=== PATIENT | male | born 1940 | race Caucasian/White ===

== ENCOUNTER 2023-02-05 13:48 | Inpatient (IN) ==
--- NOTE | 2023-02-05 14:05 | Emergency Department Note ---
HPI General Chief complaint: Shortness of Breath/Dyspnea Stated complaint: Shortness of Breath Time Seen by Provider: 02/05/23 13:50 Source: EMS Mode of arrival: EMS Limitations: no limitations History of Present Illness HPI Narrative: Narrative: 82-year-old male history of end-stage COPD presents the emergency department via EMS for shortness of breath and hallucinations they are worried they may have some kind of infection going on. The thing and possibly UTI. They did recently see Dr. Read who recommended getting a base abnormality urinate. Said he was hallucinating saying things and talking to people that were not there which is very abnormal for him. He does have end-stage COPD he does see pulmonology regularly. Said he has not really had any changes in his worsening of breathing but he just does not have very good lung capacity at baseline. Related Data Home Medications Medication Instructions Recorded Confirmed cholecalciferol (vitamin D3) 125 125 mcg PO BID 11/13/22 02/05/23 mcg (5,000 unit) tablet diltiazem HCl 180 mg 180 mg PO QDAY 11/13/22 02/05/23 tablet,extended release 24 hr (Matzim LA) fluticasone fur. 200 mcg-umeclid 1 inh inhalation QDAY 11/13/22 02/05/23 62.5 mcg-vilant 25 mcg inhalat.powder (Trelegy Ellipta) donepezil 5 mg tablet 5 mg PO QDAY 12/05/22 02/05/23 guaifenesin 1,200 mg tablet, 1,200 mg PO BID 12/05/22 02/05/23 extended release 12 hr (Mucinex) ipratropium 0.5 mg-albuterol 3 mg 3 ml inhalation Q6H PRN Wheezing 12/05/22 02/05/23 (2.5 mg base)/3 mL nebulization soln multivitamin 1 tab PO QAM 12/05/22 02/05/23 prednisone 10 mg tablet 10 mg PO QDAY 12/05/22 02/05/23 tamsulosin 0.4 mg capsule 0.4 mg PO QDAY 12/05/22 02/05/23 Previous Rx's Medication Instructions Recorded Permanent Disabled Parking #2 ea 12/02/16 Allergies Allergy/AdvReac Type Severity Reaction Status Date / Time dextromethorphan AdvReac Severe hallucinati Verified 02/05/23 13:53 ons Review of Systems ROS ROS Narrative: Narrative: All systems ED: reviewed and negative except as stated. [facility] Narrative Patient History Narrative: Narrative: Medical/Surgical/Family History All Active Problems Hypoxemia (Acute) COPD mixed type (Acute) At high risk for falls (Chronic) Dyspnea (Chronic) Dizziness (Chronic) Difficulty walking (Chronic) Muscle weakness (Chronic) Wheezing (Chronic) Cough (Chronic) Weight gain (Chronic) Diverticulosis of intestine (Chronic) Essential hypertension (Chronic) Vitamin D deficiency (Chronic) SOB (shortness of breath) (Chronic) Weakness (Chronic) Laceration (Chronic) Encounter for removal of sutures (Chronic) Acute exacerbation of chronic obstructive pulmonary disease (Chronic) Pneumonia (Chronic) Renal insufficiency (Chronic) Skin cancer, basal cell (Chronic) Hypertension (Chronic) Basal cell carcinoma (Chronic) Chest pain (Chronic) Aphthous ulcer (Chronic) Chronic obstructive pulmonary disease (Chronic) Rotator cuff impingement syndrome (Chronic) Moderate COPD (Chronic Obstructive Pulmonary Disease) (Chronic) Hypogonadism (Chronic) Hypertension, essential, benign (Chronic) History of colonoscopy (Chronic) Chronic pain (Chronic) Medical History Acute exacerbation of chronic obstructive pulmonary disease Aphthous ulcer At high risk for falls Basal cell carcinoma Chest pain Chronic obstructive pulmonary disease Chronic pain COPD mixed type Cough Difficulty walking Diverticulosis of intestine Dizziness Dyspnea Encounter for removal of sutures Essential hypertension Hypertension Hypertension, essential, benign Hypogonadism Testicular hypofunction/other hypogonadism Hypoxemia Laceration Moderate COPD (Chronic Obstructive Pulmonary Disease) Muscle weakness Pneumonia Renal insufficiency hypertensive kidney disease Rotator cuff impingement syndrome Skin cancer, basal cell SOB (shortness of breath) Vitamin D deficiency Weakness Weight gain Wheezing Surgical History History of colonoscopy 06/14/2013 - Colonic polyps, rectal polyps, diverticulosis Family History Brother Cardiac disease, Onset Age: 59 Kidney disease Mother Cardiac disease Social History Smoking Status: Former smoker Alcohol Intake Frequency: holiday/special occasion only Substance Use: does not use Exam Narrative Narrative: Narrative: Vital signs noted General: Awake. Alert. No distress. Skin: Warm. Dry. No rash. HEENT: NCAT. PERRL. EOMI. No conjunctivitis. Membranes moist. Neck: Good ROM. No meningeal signs. No stridor. Cardiovascular: RRR. Respiratory: No respiratory distress. Wheezes heard throughout but very mild Gastrointestinal: Abdomen soft. No tenderness. No distention. Back: No deformity. No CVAT. Musculoskeletal: No tenderness. No swelling. No erythema. No edema. Good peripheral pulses x 4 Neurological: No focal neurological deficits observed. General Limitations: no limitations Course Vital Signs Vital signs: Vital Signs Temperature 97.6 F 02/05/23 13:48 Pulse Rate 89 02/05/23 13:48 Respiratory Rate 20 02/05/23 13:48 Pulse Oximetry (%) 100 02/05/23 13:48 Oxygen Delivery Method Nasal Cannula 02/05/23 13:48 Oxygen Flow Rate (L/min) 3.5 02/05/23 13:48 Temperature 97.6 F 02/05/23 13:48 Pulse Rate 92 H 02/05/23 16:13 Respiratory Rate 20 02/05/23 13:48 Blood Pressure 137/100 02/05/23 16:13 Pulse Oximetry (%) 96 02/05/23 16:13 Oxygen Delivery Method Nasal Cannula 02/05/23 16:13 Oxygen Flow Rate (L/min) 3.5 02/05/23 16:13 [facility] MDM Narrative Medical decision making narrative: Narrative: Patient looks well on exam to me I do not see any acute findings. He looks well. He is not in any acute distress. Vital signs are fairly normal. I did review patient's most recent pulmonology visit from 01/17/23 sounds like they are trying to get him off steroids and checking PFTs. We will go ahead and just get basic labs including CBC chemistry, blood cultures, chest x-ray, VBG as well as a urinalysis looking for infection versus other acute findings such as hypercapnia. Disposition will be pending results is not in any acute distress at this time I did personally review and interpret patient's labs and he does have a mild leukocytosis. With a left shift there VBG shows no hypercapnia no real acute findings lactic acid also was normal. Chemistry was also ran creatinine is around baseline at 2.0 the rest electrolytes are not abnormal. Urinalysis does show signs of infection as is leukocyte esterase positive is having white blood cells as well as bacteria. Based on these findings I think patient does need to receive IV antibiotics because of the hallucinations and changes in mental status I think it probably be beneficial for him to stay here in the hospital for further treatment. We will go ahead and give him 1 dose of Rocephin here as well as have him receive IV fluids for dehydration. Patient and family are okay with this plan. I spoke with the hospitalist Dr. Calle who has agreed to admit the patient. Patient admitted in fair condition Lab Data 02/05/23 14:23 Labs: Lab Results 02/05/23 02/05/23 02/05/23 Range/Units 14:03 14:03 14:23 WBC 11.3 H (4.5-11.0) K/mcL RBC 4.41 L (4.63-6.08) M/mcL Hgb 13.7 (13.7-17.5) g/dL Hct 41.7 (40.1-51.0) % POC Hct 42.0 (41-55) MCV 94.6 (80.0-100.0) fL MCH 31.1 (26.0-34.0) pg MCHC 32.9 (31.0-36.0) g/dL RDW 14.2 (11.5-14.5) % Plt Count 212 (140-440) K/mcL MPV 9.4 (8.8-12.5) fL Immature Gran % (Auto) 1.0 H (0.0-0.5) % Neut % (Auto) 84.5 H (38.0-78.0) % Lymph % (Auto) 6.2 L (15.5-49.0) % [place] % (Auto) 7.8 (1.0-12.0) % Eos % (Auto) 0.3 (0.0-7.0) % Baso % (Auto) 0.2 (0.0-2.0) % Lymph # (Auto) 0.70 L (1.50-4.80) K/mcL [place] # (Auto) 0.88 (0.10-0.90) K/mcL Eos # (Auto) 0.03 (0.00-0.70) K/mcL Baso # (Auto) 0.02 (0.00-0.30) K/mcL Immature Gran # 0.11 H (0.00-0.05) K/mcl Absolute Neutrophils 9.56 H (1.80-8.00) K/mcL POC VBG pH 7.39 (7.32-7.42) POC VBG pCO2 at Temp 50.3 (41-51) POC VBG pO2 30 (25-40) POC VBG HCO3 30.5 H (24-28) POC VBG Total CO2 32.0 H (25-29) POC Venous O2 Sat 56.0 (40-70) POC VBG Base Excess 6.0 H* (-2-2) VBG Lactic Acid 1.0 (0.5-2) POC Sodium 143 (133-145) POC Potassium 3.4 (3.3-5.1) POC Chloride 103 (96-108) POC Total CO2 29.0 (22-30) POC BUN 30 H (6-20) POC Creatinine 2.0 H (0.6-1.2) POC Glucose 109 H (70-105) POC WB Ioniz Calcium 1.21 (1.16-1.32) Urine Color Urine Appearance (Clear) Urine pH (5.0-9.0) Ur Specific [place] (1.000-1.035) Urine Protein (Negative) mg/dL Urine Glucose (UA) (Negative) mg/dL Urine Ketones (Negative) mg/dL Urine Occult Blood (Negative) mg/dL Urine Nitrate (Negative) Urine Bilirubin (Negative) mg/dL Urine Urobilinogen mg/dL Ur Leukocyte Esterase (Negative) /uL Urine RBC (0-3) /hpf Urine WBC (0-4) /hpf Ur Squamous Epith Cells (0-4) /hpf Ur Transition Epith Cell (0-2) /hpf Urine Bacteria (0) /hpf Hyaline Casts (0-2) /lph Urine Mucus (None) /hpf Ur Culture Indicated? 02/05/23 Range/Units 14:59 WBC (4.5-11.0) K/mcL RBC (4.63-6.08) M/mcL Hgb (13.7-17.5) g/dL Hct (40.1-51.0) % POC Hct (41-55) MCV (80.0-100.0) fL MCH (26.0-34.0) pg MCHC (31.0-36.0) g/dL RDW (11.5-14.5) % Plt Count (140-440) K/mcL MPV (8.8-12.5) fL Immature Gran % (Auto) (0.0-0.5) % Neut % (Auto) (38.0-78.0) % Lymph % (Auto) (15.5-49.0) % [place] % (Auto) (1.0-12.0) % Eos % (Auto) (0.0-7.0) % Baso % (Auto) (0.0-2.0) % Lymph # (Auto) (1.50-4.80) K/mcL [place] # (Auto) (0.10-0.90) K/mcL Eos # (Auto) (0.00-0.70) K/mcL Baso # (Auto) (0.00-0.30) K/mcL Immature Gran # (0.00-0.05) K/mcl Absolute Neutrophils (1.80-8.00) K/mcL POC VBG pH (7.32-7.42) POC VBG pCO2 at Temp (41-51) POC VBG pO2 (25-40) POC VBG HCO3 (24-28) POC VBG Total CO2 (25-29) POC Venous O2 Sat (40-70) POC VBG Base Excess (-2-2) VBG Lactic Acid (0.5-2) POC Sodium (133-145) POC Potassium (3.3-5.1) POC Chloride (96-108) POC Total CO2 (22-30) POC BUN (6-20) POC Creatinine (0.6-1.2) POC Glucose (70-105) POC WB Ioniz Calcium (1.16-1.32) Urine Color Yellow Urine Appearance Hazy A (Clear) Urine pH 5.0 (5.0-9.0) Ur Specific [place] 1.014 (1.000-1.035) Urine Protein 30 A (Negative) mg/dL Urine Glucose (UA) Negative (Negative) mg/dL Urine Ketones 5 A (Negative) mg/dL Urine Occult Blood 0.20 (Negative) mg/dL Urine Nitrate Negative (Negative) Urine Bilirubin Negative (Negative) mg/dL Urine Urobilinogen Negative mg/dL Ur Leukocyte Esterase 25 A (Negative) /uL Urine RBC 17 H (0-3) /hpf Urine WBC 15 H (0-4) /hpf Ur Squamous Epith Cells 0 (0-4) /hpf Ur Transition Epith Cell < 1 (0-2) /hpf Urine Bacteria Few A (0) /hpf Hyaline Casts 1 (0-2) /lph Urine Mucus Few A (None) /hpf Ur Culture Indicated? yes Discharge Plan Patient/Caregiver Discharge Instructions Pt seen by DIALYSIS NURSE/PA only: No Activity: increase activity as tolerated Prescriptions: No Action (DME) Permanent Disabled Parking Qty: 2 0RF Rx Instructions: Patient cannot walk 200 feet without stopping to rest. Walking is severely limited due to arthritic and orthopedic condition. diltiazem HCl [Matzim LA] 180 mg tablet extended release 24 hr 180 mg PO QDAY Trelegy Ellipta 200-62.5-25 mcg blister with device 1 inh inhalation QDAY cholecalciferol (vitamin D3) 125 mcg (5,000 unit) tablet 125 mcg PO BID prednisone 10 mg tablet 10 mg PO QDAY ipratropium-albuterol 0.5 mg-3 mg(2.5 mg base)/3 mL solution for nebulization 3 ml inhalation Q6H PRN (Reason: Wheezing) Mucinex 1,200 mg tablet extended release 12hr 1,200 mg PO BID multivitamin Tablet 1 tab PO QAM tamsulosin 0.4 mg capsule 0.4 mg PO QDAY donepezil 5 mg tablet 5 mg PO QDAY
[2023-02-05 14:08] LABS: POC Calcium, Ionized 1.21 (1.16-1.32); POC Potassium 3.4 (3.3-5.1)
[2023-02-05 14:53] LABS: Basophils # (Auto) 0.02 K/mcL (0.00-0.30); Basophils % (Auto) 0.2 % (0.0-2.0); Eosinophils # (Auto) 0.03 K/mcL (0.00-0.70); Eosinophils % (Auto) 0.3 % (0.0-7.0); Hematocrit 41.7 % (40.1-51.0); Hemoglobin 13.7 g/dL (13.7-17.5); Lymphocytes % (Auto) 6.2 % (15.5-49.0); Mean Cell Volume 94.6 fL (80.0-100.0); Mean Corpuscular HGB Conc 32.9 g/dL (31.0-36.0); Mean Platelet Volume 9.4 fL (8.8-12.5); Monocytes # (Auto) 0.88 K/mcL (0.10-0.90); Monocytes % (Auto) 7.8 % (1.0-12.0); Neutrophils % (Auto) 84.5 % (38.0-78.0); Platelet Count 212 K/mcL (140-440); RBC 4.41 M/mcL (4.63-6.08); Red Cell Distribution Width 14.2 % (11.5-14.5); WBC 11.3 K/mcL (4.5-11.0)
[2023-02-05 15:41] LABS: Appearance,Urine HAZY (Clear); Bacteria,Urine FEW /hpf (0); Bilirubin,Urine Negative (Negative); Color,Urine YELLOW; Culture Indicated,Urine yes; Glucose,Urine (UA) Negative (Negative); Ketones,Urine 5 mg/dL (Negative); Leukocyte Esterase,Urine 25 /uL (Negative); Mucus,Urine FEW /hpf; Nitrate,Urine Negative (Negative); Protein,Urine 30 mg/dL (Negative); Specific Gravity,Urine 1.014 (1.000-1.035); Urine Hyaline Cast 1 /lph (0-2); Urine RBC 17 /hpf (0-3); Urine Squamous Epithelial Cell 0 /hpf (0-4); Urine Transitional Epi Cells < 1 /hpf (0-2); Urine WBC 15 /hpf (0-4); Urobilinogen,Urine Negative
[2023-02-05] MEDS ORDERED: cefTRIAXone 1 GM VIAL IV ONE (15:52)
--- NOTE | 2023-02-05 16:06 | XRay Report ---
INDICATION: dyspnea TECHNIQUE: AP portable semiupright chest x-ray COMPARISON: Previous chest x-rays dated 12/26/2022, 11/04/2022 FINDINGS: Lungs:Left lung is negative. No focal infiltrate or mass. Small focal density in the right midlung most consistent with atelectasis. Small focus of pneumonia is possible. Follow-up radiographs are recommended. Heart, vascular:No significant cardiomegaly. Pulmonary vascularity is normal. No pulmonary edema or pulmonary congestion Mediastinum, rajat:No mediastinal widening. No hilar mass Pleura:No pleural fluid. No pleural-based mass or calcification Skeletal:Negative. IMPRESSION: 1. Pulmonary parenchymal density in the right midlung consistent with atelectasis or pneumonia. Follow-up recommended 2. Otherwise negative chest x-ray Interpreted and Authenticated by: Wero More 02/05/23
[2023-02-05] MEDS: 0.9 % SODIUM CHLORIDE 1,000 ML IV SCH (16:15)
--- NOTE | 2023-02-05 16:26 | Internal Med History&Physical ---
HPI History of Present Illness Patient information: Note initiated : 02/05/23 at 4:16 pm Service Date, if different from initiated Date: [] Patient: uMsa Mcgill 82 y/o M admitted on for Shortness of Breath. Chief Complaint: [] History of present illness: 82-year-old male history of end-stage COPD on chronic steroid therapy, prednisone 30 mg daily per shipping and receiving clerk, chronic hypoxemic respiratory failure 3.5-5 L nasal cannula oxygen at home, bedbound status due to end-stage COPD, CKD, hypertension, vitamin D deficiency, dementia, BPH presented with altered mental status, visual hallucination and family was concerned that patient was having some infection. reported patient was talking about snow grader when there is no snow. They reported patient breathing is chronically bad however there has not been any recent change. Patient has chronic mild edema of lower extremity, his echocardiogram from 12/26/2022 was reviewed which shows low normal EF of 50-55% no significant diastolic or valvular dysfunction. On presentation patient with mild tachycardia of 94. WBC 11.3, hemoglobin 13.7, VBG with pH 7.39, PCO2 50, PO2 30. Lactic acid 1.0, sodium 143, potassium 3.4. BUN 30, creatinine 2.0 close to his baseline. UA positive for leukocyte esterase, RBC, WBC, bacteria. Chest x-ray with atelectasis in the right midlung but no clear infiltrate. Admission was requested. Review of system 14 point review of system completed and was negative except mentioned above. Physical examination Vital signs noted General: Alert, awake, chronically ill-appearing, in no acute distress Skin: Warm. Dry. No rash. HEENT: NCAT. PERRL. EOMI. No conjunctivitis. Membranes moist. Neck: Good ROM. No meningeal signs. No stridor. Cardiovascular: S1 and S2, RRR. No murmurs heard Respiratory: Mild wheeze bilaterally, no tachypnea, on supplemental oxygen Gastrointestinal: Abdomen soft. No tenderness. No distention. Back: No deformity. No CVAT. Musculoskeletal: No tenderness. No swelling. No erythema. No edema. Good peripheral pulses x 4 Neurological: No focal neurological deficits observed. Assessment and plan UTI. UA positive for leukocyte esterase, RBC, WBC, bacteria. Continue ceftriaxone. Follow urine culture Acute encephalopathy. Likely in the setting of UTI with underlying dementia. He is chronically on steroids which can cause mental status changes however encephalopathy is acute. End-stage COPD. Patient chronically on prednisone 30 mg daily. He follows up with pulmonology. He is so disabled that he cannot ambulate and is pretty much bedbound from COPD. Chest x-ray with some right midlung atelectasis but no clear infiltrate. We will continue with DuoNebs, budesonide, will give IV Solu- Medrol x1 and then continue with prednisone 30 mg from tomorrow morning. Chronic hypoxemic respiratory failure. Currently at baseline of 3.5 L nasal cannula oxygen Hypertension. Will resume home dose diltiazem CKD stage III. Serum creatinine at baseline. Avoid nephrotoxic's Dementia. Continue donepezil BPH. Continue tamsulosin Vitamin D deficiency. Continue vitamin D supplementation DVT prophylaxis. With SCDs CODE STATUS. DNR/DNI. Critical care time 55 minutes PFS PFS All Active Problems (Updated 02/05/23 @ 16:31 by Bhupendra Mera) Acute cystitis with hematuria (Acute) Acute confusion (Acute) Hypoxemia (Acute) COPD mixed type (Acute) At high risk for falls (Chronic) Dyspnea (Chronic) Dizziness (Chronic) Difficulty walking (Chronic) Muscle weakness (Chronic) Wheezing (Chronic) Cough (Chronic) Weight gain (Chronic) Diverticulosis of intestine (Chronic) Essential hypertension (Chronic) Vitamin D deficiency (Chronic) SOB (shortness of breath) (Chronic) Weakness (Chronic) Laceration (Chronic) Encounter for removal of sutures (Chronic) Acute exacerbation of chronic obstructive pulmonary disease (Chronic) Pneumonia (Chronic) Renal insufficiency (Chronic) Skin cancer, basal cell (Chronic) Hypertension (Chronic) Basal cell carcinoma (Chronic) Chest pain (Chronic) Aphthous ulcer (Chronic) Chronic obstructive pulmonary disease (Chronic) Rotator cuff impingement syndrome (Chronic) Moderate COPD (Chronic Obstructive Pulmonary Disease) (Chronic) Hypogonadism (Chronic) Hypertension, essential, benign (Chronic) History of colonoscopy (Chronic) Chronic pain (Chronic) Medical History Acute exacerbation of chronic obstructive pulmonary disease Aphthous ulcer At high risk for falls Basal cell carcinoma Chest pain Chronic obstructive pulmonary disease Chronic pain COPD mixed type Cough Difficulty walking Diverticulosis of intestine Dizziness Dyspnea Encounter for removal of sutures Essential hypertension Hypertension Hypertension, essential, benign Hypogonadism Testicular hypofunction/other hypogonadism Hypoxemia Laceration Moderate COPD (Chronic Obstructive Pulmonary Disease) Muscle weakness Pneumonia Renal insufficiency hypertensive kidney disease Rotator cuff impingement syndrome Skin cancer, basal cell SOB (shortness of breath) Vitamin D deficiency Weakness Weight gain Wheezing Surgical History History of colonoscopy 06/14/2013 - Colonic polyps, rectal polyps, diverticulosis Family History Brother Cardiac disease, Onset Age: 59 Kidney disease Mother Cardiac disease Social History (Updated 12/05/22 @ 15:31 by Dipika Kenyon RN) marital status: occupational status: retired pets and animals: No sexually active: No smoking status: Former smoker quit date: 10/28/22 pack-years: 68 alcohol intake frequency: holiday/special occasion only substance use type: does not use seatbelt use: always carbon monox detector in home: Yes MEDS/ALLERGIES Home Medications and Allergies Home Medications Medication Instructions Recorded Confirmed Type Permanent Disabled Parking #2 ea 12/02/16 02/05/23 Rx cholecalciferol (vitamin D3) 125 125 mcg PO BID 11/13/22 02/05/23 History mcg (5,000 unit) tablet diltiazem HCl 180 mg 180 mg PO QDAY 11/13/22 02/05/23 History tablet,extended release 24 hr (Matzim [place]) fluticasone fur. 200 mcg-umeclid 1 inh inhalation QDAY 11/13/22 02/05/23 History 62.5 mcg-vilant 25 mcg inhalat.powder (Trelegy Ellipta) donepezil 5 mg tablet 5 mg PO QDAY 12/05/22 02/05/23 History guaifenesin 1,200 mg tablet, 1,200 mg PO BID 12/05/22 02/05/23 History extended release 12 hr (Mucinex) ipratropium 0.5 mg-albuterol 3 mg 3 ml inhalation Q6H PRN Wheezing 12/05/22 02/05/23 History (2.5 mg base)/3 mL nebulization soln multivitamin 1 tab PO QAM 12/05/22 02/05/23 History prednisone 10 mg tablet 10 mg PO QDAY 12/05/22 02/05/23 History tamsulosin 0.4 mg capsule 0.4 mg PO QDAY 12/05/22 02/05/23 History Allergies Allergy/AdvReac Type Severity Reaction Status Date / Time dextromethorphan AdvReac Severe hallucinati Verified 02/05/23 13:53 ons EXAM Constitutional Vitals: Temp Pulse Resp BP Pulse Ox O2 Del Method O2 Flow Rate 97.6 F 92 H 20 137/100 96 Nasal Cannula 3.5 02/05/23 13:48 02/05/23 16:13 02/05/23 13:48 02/05/23 16:13 02/05/23 16:13 02/05/23 16:13 02/05/23 16:13 DATA Data Completed and Pending Labs: Labs from last 24 hours 02/05/23 02/05/23 02/05/23 14:59 14:23 14:03 WBC 11.3 H RBC 4.41 L Hgb 13.7 Hct 41.7 POC Hct MCV 94.6 MCH 31.1 MCHC 32.9 RDW 14.2 Plt Count 212 MPV 9.4 Immature Gran % (Auto) 1.0 H Neut % (Auto) 84.5 H Lymph % (Auto) 6.2 L [place] % (Auto) 7.8 Eos % (Auto) 0.3 Baso % (Auto) 0.2 Lymph # (Auto) 0.70 L [place] # (Auto) 0.88 Eos # (Auto) 0.03 Baso # (Auto) 0.02 Immature Gran # 0.11 H Absolute Neutrophils 9.56 H POC VBG pH 7.39 POC VBG pCO2 at Temp 50.3 POC VBG pO2 30 POC VBG HCO3 30.5 H POC VBG Total CO2 32.0 H POC Venous O2 Sat 56.0 POC VBG Base Excess 6.0 H* VBG Lactic Acid 1.0 POC Sodium POC Potassium POC Chloride POC Total CO2 POC BUN POC Creatinine POC Glucose POC WB Ioniz Calcium Urine Color Yellow Urine Appearance Hazy A Urine pH 5.0 Ur Specific [place] 1.014 Urine Protein 30 A Urine Glucose (UA) Negative Urine Ketones 5 A Urine Occult Blood 0.20 Urine Nitrate Negative Urine Bilirubin Negative Urine Urobilinogen Negative Ur Leukocyte Esterase 25 A Urine RBC 17 H Urine WBC 15 H Ur Squamous Epith Cells 0 Ur Transition Epith Cell < 1 Urine Bacteria Few A Hyaline Casts 1 Urine Mucus Few A Ur Culture Indicated? yes 02/05/23 14:03 WBC RBC Hgb Hct POC Hct 42.0 MCV MCH MCHC RDW Plt Count MPV Immature Gran % (Auto) Neut % (Auto) Lymph % (Auto) [place] % (Auto) Eos % (Auto) Baso % (Auto) Lymph # (Auto) [place] # (Auto) Eos # (Auto) Baso # (Auto) Immature Gran # Absolute Neutrophils POC VBG pH POC VBG pCO2 at Temp POC VBG pO2 POC VBG HCO3 POC VBG Total CO2 POC Venous O2 Sat POC VBG Base Excess VBG Lactic Acid POC Sodium 143 POC Potassium 3.4 POC Chloride 103 POC Total CO2 29.0 POC BUN 30 H POC Creatinine 2.0 H POC Glucose 109 H POC WB Ioniz Calcium 1.21 Urine Color Urine Appearance Urine pH Ur Specific [place] Urine Protein Urine Glucose (UA) Urine Ketones Urine Occult Blood Urine Nitrate Urine Bilirubin Urine Urobilinogen Ur Leukocyte Esterase Urine RBC Urine WBC Ur Squamous Epith Cells Ur Transition Epith Cell Urine Bacteria Hyaline Casts Urine Mucus Ur Culture Indicated? A/P Time Spent With Patient Time: Total time spent is greater than 50% in coordination of care (as documented) at patient's floor/unit and/or counseling patient:
[2023-02-05] MEDS ORDERED: IPRATROPIUM/ALBUTEROL 3 ML AMPUL.NEB NEB ONE ×3 (16:45→21:10)
[2023-02-05] MEDS ORDERED: traZODone HCL 50 MG TABLET PO PRN (17:46)
[2023-02-05] MEDS ORDERED: ONDANSETRON 4 MG/2 ML VIAL IV PRN (17:46)
[2023-02-05] MEDS ORDERED: MAGNESIUM HYDROXIDE 30 ML ORAL.SUSP PO PRN (17:46)
[2023-02-05] MEDS ORDERED: ACETAMINOPHEN 325 MG TABLET PO PRN (17:46)
[2023-02-05] MEDS ORDERED: BISACODYL 10 MG SUPP.RECT PR PRN (17:46)
[2023-02-05] MEDS ORDERED: methylPREDNISolone SOD SUCC 40 MG/ML VIAL IV ONE (17:46)
[2023-02-05] MEDS: IPRATROPIUM/ALBUTEROL 3 ML AMPUL.NEB NEB SCH ×2 (18:15→20:13)
[2023-02-05] MEDS: SENNOSIDES 1 TABLET PO SCH ×2 (20:21→23:10)
[2023-02-05] MEDS: DOCUSATE SODIUM 100 MG CAPSULE PO SCH (20:21)
[2023-02-05] MEDS: guaiFENesin 600 MG TAB.SR.12H PO SCH (20:22)
[2023-02-05] MEDS: VITAMIN D3 125 MCG TABLET PO SCH ×2 (20:22→23:10)
--- NOTE | 2023-02-05 20:57 | Internal Med Progress Note ---
SUBJECTIVE Subjective Patient information: Note initiated : 02/05/23 at 8:56 pm Service Date, if different from initiated Date: [] Patient: Musa Mcgill 82 y/o M admitted on 02/05/23 for Shortness of Breath. 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 reported patient was talking about snow grader when there is no snow. They reported patient breathing is chronically bad however there has not been any recent change. Patient has chronic mild edema of lower extremity, his echocardiogram from 12/26/2022 was reviewed which shows low normal EF of 50-55% no significant diastolic or valvular dysfunction. On presentation patient with mild tachycardia of 94. WBC 11.3, hemoglobin 13.7, VBG with pH 7.39, PCO2 50, PO2 30. Lactic acid 1.0, sodium 143, potassium 3.4. BUN 30, creatinine 2.0 close to his baseline. UA positive for leukocyte esterase, RBC, WBC, bacteria. Chest x-ray with atelectasis in the right midlung but no clear infiltrate. Admission was requested. 02/06. Leukocytosis resolved, WBC 10,000 down from 11.3. Hemoglobin 14.1. Serum creatinine down to 1.7 from 2.0 on admission. Blood culture and urine culture pending. Daughter and present at bedside. They reported patient is still hallucinating. Family thinks this is relatively new, RT reported that when patient came for PFTs a month ago he was confused with some hallucinatory behavior. Discussed CT head, they did not want to do it. They agreed with obtaining ABGs first and giving more time for antibiotics to work, they do not want him to be treated very aggressively, since then know he has end-stage COPD. Review of system 14 point review of system completed and was negative except mentioned above. Physical examination Vital signs noted General: Alert, awake, chronically ill-appearing, appears in no acute distress Skin: Warm. Dry. No rash. HEENT: NCAT. PERRL. EOMI. No conjunctivitis. Membranes moist. Neck: Good ROM. No meningeal signs. No stridor. Cardiovascular: S1 and S2, RRR. No murmurs heard Respiratory: Mild wheeze bilaterally, no tachypnea, on supplemental oxygen Gastrointestinal: Abdomen soft. No tenderness. No distention. Back: No deformity. No CVAT. Musculoskeletal: No tenderness. No swelling. No erythema. No edema. Good per ipheral pulses x 4 Neurological: No focal neurological deficits observed. Assessment and plan UTI. UA positive for leukocyte esterase, RBC, WBC, bacteria. Continue ceftria xone. Follow urine culture. Acute encephalopathy. Likely in the setting of UTI with underlying dementia. He is chronically on steroids which can cause mental status changes. Will repeat ABGs to see if patient is retaining CO2 which is causing encephalopathy. Family does not want to be very aggressive, they did not want CT head at this time. They want to wait and see if treatment with antibiotics improve encephalopathy and I agree with that. End-stage COPD. Patient chronically on prednisone 30 mg daily. He follows up with pulmonology. He is so disabled that he cannot ambulate and is pretty much bedbound from COPD. Chest x-ray with some right midlung atelectasis but no clear infiltrate. Continue with DuoNebs, budesonide, home dose prednisone 30 mg daily Chronic hypoxemic respiratory failure. Currently at baseline of 4L nasal cannula oxygen Hypertension. On home dose diltiazem CKD stage III. Serum creatinine improved to 2.3 from 2.7. This seems to be his baseline range. Dementia. Continue donepezil BPH. Continue tamsulosin Vitamin D deficiency. Continue vitamin D supplementation DVT prophylaxis. With SCDs CODE STATUS. DNR/DNI. Total time taken 50 min Constitutional Vitals: Vital Signs Temp Pulse Resp BP Pulse Ox O2 Del Method O2 Flow Rate 98.7 F 95 H 22 168/76 98 Nasal Cannula 4 02/05/23 20:32 02/05/23 20:32 02/05/23 20:32 02/05/23 20:32 02/05/23 20:32 02/05/23 20:32 02/05/23 20:32 Period Temp Pulse Resp BP Sys/Kelley Pulse Ox O2 Del Method O2 Flow Rate Last 24 Hr 97.6 F-99.3 F 86-105 20-26 111-192/76-136 92-100 Nasal Cannula-Nasal Cannula 3.5-4 Intake and Output 02/05/23 02/05/23 02/06/23 11:59 19:59 03:59 Output Total 100 Balance -100 Weight 72.575 kg 78.199 kg Patient Weight 02/06/23 03:59 Weight 78.199 kg Intake & Output: Intake & Output 02/05/23 02/05/23 02/06/23 11:59 19:59 03:59 Output Total 100 Balance -100 Weight 72.575 kg 78.199 kg Output: Void Amount 100 Other: Urine Appearance Clear Urine Color Yellow Urine Odor Normal OBJ DATA Labs 02/06/23 05:29 02/06/23 05:29 Labs: Abnormal Lab Results 02/05/23 02/05/23 02/05/23 14:59 14:23 14:03 WBC 11.3 H RBC 4.41 L Immature Gran % (Auto) 1.0 H Neut % (Auto) 84.5 H Lymph % (Auto) 6.2 L Lymph # (Auto) 0.70 L Immature Gran # 0.11 H Absolute Neutrophils 9.56 H POC VBG HCO3 30.5 H POC VBG Total CO2 32.0 H POC VBG Base Excess 6.0 H* POC BUN POC Creatinine POC Glucose Urine Appearance Hazy A Urine Protein 30 A Urine Ketones 5 A Ur Leukocyte Esterase 25 A Urine RBC 17 H Urine WBC 15 H Urine Bacteria Few A Urine Mucus Few A 02/05/23 14:03 WBC RBC Immature Gran % (Auto) Neut % (Auto) Lymph % (Auto) Lymph # (Auto) Immature Gran # Absolute Neutrophils POC VBG HCO3 POC VBG Total CO2 POC VBG Base Excess POC BUN 30 H POC Creatinine 2.0 H POC Glucose 109 H Urine Appearance Urine Protein Urine Ketones Ur Leukocyte Esterase Urine RBC Urine WBC Urine Bacteria Urine Mucus Meds: Medications Acetaminophen (Acetaminophen 325 Mg Tablet) 650 mg PO Q6HP PRN; Protocol PRN Reason: Per Pain Protocol/Fever > 101 Albuterol/Ipratropium (Ipratropium/Albuterol 3 Ml Ampul.Neb) 3 ml NEB QID [facility] Last Admin: 02/05/23 20:13 Dose: 3 ml Bisacodyl (Bisacodyl 10 Mg Supp.Rect) 10 mg [place] Q2-3DAYS PRN PRN Reason: Constipation Budesonide (Budesonide 0.5 Mg/2 Ml Ampul.Neb) 0.5 mg NEB Q12 [facility] Diltiazem HCl (Diltiazem 180 Mg Cap.Xl.24h) 180 mg PO DAILY [facility] Docusate Sodium (Docusate Sodium 100 Mg Capsule) 100 mg PO BID [facility] Last Admin: 02/05/23 20:21 Dose: 100 mg Donepezil HCl (Donepezil 10 Mg Tablet) 5 mg PO QDAY [facility] Guaifenesin (Guaifenesin 600 Mg Tab.Sr.12h) 1,200 mg PO BID [facility] Last Admin: 02/05/23 20:22 Dose: 1,200 mg Sodium Chloride (Sodium Chloride 0.9%) 1,000 mls @ 125 mls/hr IV .Q8H [facility] Last Admin: 02/05/23 16:15 Dose: 125 mls/hr Ceftriaxone Sodium 2 gm/ (Dextrose) 50 mls @ 100 mls/hr IV Q24H [facility]; Protocol Iron Carb/Multivit/Barber/Folic Acid (Multivit,Ther Iron,Ca,Fa & Min 1 Tablet) 1 tab PO DAILY [facility] Magnesium Hydroxide (Magnesium Hydroxide 30 Ml Oral.Susp) 30 ml PO DAILYP PRN PRN Reason: Constipation Ondansetron HCl (Ondansetron 4 Mg/2 Ml Vial) 4 mg IV Q6HP PRN PRN Reason: Nausea And Vomiting Prednisone (Prednisone 10 Mg Tablet) 30 mg PO [facility] Senna (Sennosides 1 Tablet) 2 tab PO HS [facility] Last Admin: 02/05/23 20:21 Dose: 2 tab Sodium Chloride (0.9 % Sodium Chloride 10 Ml Syringe) 10 ml IV Q8 [facility] Tamsulosin HCl (Tamsulosin 0.4 Mg Capsule) 0.4 mg PO QDAY [facility] Trazodone HCl (Trazodone Hcl 50 Mg Tablet) 25 mg PO HSP PRN PRN Reason: Insomnia Vitamin D (Vitamin D3 125 Mcg Tablet) 125 mcg PO BID [facility] Last Admin: 02/05/23 20:22 Dose: 125 mcg A/P Time Spent With Patient Time: Total time spent is greater than 50% in coordination of care (as documented) at patient's floor/unit and/or counseling patient: QUALITY VTE Deep Vein Thrombosis/Pulmonary Embolism Present on Admission: No
[2023-02-05] MEDS: BUDESONIDE 0.5 MG/2 ML AMPUL.NEB NEB SCH (21:12)
[2023-02-05] MEDS: 0.9 % SODIUM CHLORIDE 10 ML SYRINGE IV SCH (23:11)
[2023-02-06] MEDS: 0.9 % SODIUM CHLORIDE 1,000 ML IV SCH ×2 (01:59→08:41)
[2023-02-06] MEDS: IPRATROPIUM/ALBUTEROL 3 ML AMPUL.NEB NEB PRN (04:55)
[2023-02-06] MEDS: 0.9 % SODIUM CHLORIDE 10 ML SYRINGE IV SCH ×2 (06:04→12:34)
[2023-02-06 06:07] LABS: Basophils # (Auto) 0.02 K/mcL (0.00-0.30); Basophils % (Auto) 0.2 % (0.0-2.0); Eosinophils # (Auto) 0 K/mcL (0.00-0.70); Eosinophils % (Auto) 0 % (0.0-7.0); Hematocrit 42.7 % (40.1-51.0); Hemoglobin 14.1 g/dL (13.7-17.5); Lymphocytes # (Auto) 0.24 K/mcL (1.50-4.80); Lymphocytes % (Auto) 2.4 % (15.5-49.0); Mean Platelet Volume 9.4 fL (8.8-12.5); Monocytes # (Auto) 0.25 K/mcL (0.10-0.90); Monocytes % (Auto) 2.5 % (1.0-12.0); Neutrophils % (Auto) 93.9 % (38.0-78.0); Platelet Count 196 K/mcL (140-440); RBC 4.59 M/mcL (4.63-6.08)
[2023-02-06 06:29] LABS: ALT/SGPT 41 U/L (<40); AST/SGOT 20 U/L (<40); Albumin 3.6 gm/dL (3.2-5.2); Albumin/Globulin Ratio 1.6 (1.0-2.3); Alkaline Phosphatase 79 U/L (39-117); Bilirubin,Total 0.4 mg/dL (0.1-1.0); Blood Urea Nitrogen 28 mg/dL (8-23); Calcium 8.8 mg/dL (8.6-10.4); Carbon Dioxide 22 mmol/L (22-30); Chloride 101 mmol/L (96-108); Globulin 2.3 gm/dL (2.2-3.7); Glomerular Filtration Rate 37; Glucose 129 mg/dL (70-105)
[2023-02-06] MEDS: BUDESONIDE 0.5 MG/2 ML AMPUL.NEB NEB SCH ×2 (08:25→20:17)
[2023-02-06] MEDS: IPRATROPIUM/ALBUTEROL 3 ML AMPUL.NEB NEB SCH ×4 (08:25→20:18)
[2023-02-06] MEDS: cefTRIAXone 2 GM in DEXTROSE 5% IN WATER 50 ML IV SCH (09:11)
[2023-02-06] MEDS: guaiFENesin 600 MG TAB.SR.12H PO SCH ×2 (09:19→22:00)
[2023-02-06] MEDS: busPIRone 15 MG TABLET PO SCH ×2 (09:19→21:56)
[2023-02-06] MEDS: MULTIVIT,THER IRON,CA,FA & MIN 1 TABLET PO SCH (09:19)
[2023-02-06] MEDS: DILTIAZEM 180 MG CAP.XL.24H PO SCH (09:19)
[2023-02-06] MEDS: TAMSULOSIN 0.4 MG CAPSULE PO SCH (09:20)
[2023-02-06] MEDS: VITAMIN D3 125 MCG TABLET PO SCH ×2 (09:20→21:56)
[2023-02-06] MEDS: DONEPEZIL 10 MG TABLET PO SCH (09:20)
[2023-02-06] MEDS: predniSONE 10 MG TABLET PO SCH (09:20)
[2023-02-06] MEDS: DOCUSATE SODIUM 100 MG CAPSULE PO SCH ×3 (09:21→22:05)
[2023-02-06] MEDS: hydrALAZINE 20 MG/ML VIAL IV PRN (12:33)
[2023-02-06] MEDS ORDERED: LABETALOL 5 MG/ML ML IV PRN (13:16)
--- NOTE | 2023-02-06 13:18 | Internal Med Progress Note ---
SUBJECTIVE Subjective Patient information: Note initiated : 02/06/23 at 1:08 pm Service Date, if different from initiated Date: [] Patient: Musa Mcgill 82 y/o M admitted on 02/05/23 for Shortness of Breath. 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 reported patient was talking about snow grader when there is no snow. They reported patient breathing is chronically bad however there has not been any recent change. Patient has chronic mild edema of lower extremity, his echocardiogram from 12/26/2022 was reviewed which shows low normal EF of 50-55% no significant diastolic or valvular dysfunction. On presentation patient with mild tachycardia of 94. WBC 11.3, hemoglobin 13.7, VBG with pH 7.39, PCO2 50, PO2 30. Lactic acid 1.0, sodium 143, potassium 3.4. BUN 30, creatinine 2.0 close to his baseline. UA positive for leukocyte esterase, RBC, WBC, bacteria. Chest x-ray with atelectasis in the right midlung but no clear infiltrate. Admission was requested. 02/06. Leukocytosis resolved, WBC 10,000 down from 11.3. Hemoglobin 14.1. Serum creatinine down to 1.7 from 2.0 on admission. Blood culture and urine culture pending. Daughter and present at bedside. They reported patient is still hallucinating. Family thinks this is relatively new, RT reported that when patient came for PFTs a month ago he was confused with some hallucinatory behavior. Discussed CT head, they did not want to do it. They agreed with obtaining ABGs first and giving more time for antibiotics to work, they do not want him to be treated very aggressively, since then know he has end-stage COPD. 02/07 Review of Systems: denies headache/fever/chills/nausea/vomiting/chest or abdominal pain/diarrhea. Otherwise see above. PHYSICAL EXAM General: Alert, Awake, No acute Distress, chronically ill-appearing Eyes/N/T: EOMI, no scleral icterus, Head/Neck: neck supple, CV: RRR, No murmurs, Pulm: Mild wheeze bilaterally,, no rales, no respiratory distress Abd: soft, nontender, +BS x4 Ext: no clubbing/cyanosis/edema, nontender Neuro: Alert, no focal deficits, moves all extremities, , sensations intact b/l upper/lower Psychiatric: Skin: warm/dry, normal color Constitutional Vitals: Vital Signs Temp Pulse Resp BP Pulse Ox O2 Del Method O2 Flow Rate 97.7 F 97 H 24 H 167/79 96 Nasal Cannula 4 02/06/23 12:00 02/06/23 12:00 02/06/23 12:00 02/06/23 12:00 02/06/23 12:00 02/06/23 12:00 02/06/23 12:00 Period Temp Pulse Resp BP Sys/Kelley Pulse Ox O2 Del Method O2 Flow Rate Last 24 Hr 97.6 F-99.3 F 86-105 20-26 111-192/76-136 89-100 Nasal Cannula-Nasal Cannula, Bubble Humidifier 3.5-4 Intake and Output 02/06/23 02/06/23 02/06/23 03:59 11:59 19:59 Intake Total 200 1050 Output Total 1 1 Balance 199 1049 Weight 78.199 kg Intake & Output: Intake & Output 02/06/23 02/06/23 02/06/23 03:59 11:59 19:59 Intake Total 200 1050 Output Total 1 1 Balance 199 1049 Weight 78.199 kg Intake: IV 0 1050 Sodium Chloride 0.9% 1,000 ml @ 0 1000 125 mls/hr IV .Q8H [facility] Rx#: [id number] Rocephin 2 gm In Dextrose 5% in 50 Water 50 ml @ 100 mls/hr IV Q24H [facility] Rx#:[id number] Oral 200 Output: # of times incontinent of urine 1 1 OBJ DATA Labs 02/06/23 05:29 02/06/23 05:29 Labs: Abnormal Lab Results 02/06/23 02/06/23 02/06/23 11:29 05:29 05:29 WBC RBC 4.59 L Immature Gran % (Auto) 1.0 H Neut % (Auto) 93.9 H Lymph % (Auto) 2.4 L Lymph # (Auto) 0.24 L Immature Gran # 0.10 H Absolute Neutrophils 9.42 H POC pCO2 48.0 H POC pO2 75 L POC HCO3 26.8 H POC Total CO2 28.0 H POC VBG HCO3 POC VBG Total CO2 POC VBG Base Excess POC BUN BUN 28 H Creatinine 1.7 H POC Creatinine Glucose 129 H POC Glucose ALT 41 H Urine Appearance Urine Protein Urine Ketones Ur Leukocyte Esterase Urine RBC Urine WBC Urine Bacteria Urine Mucus 02/05/23 02/05/23 02/05/23 14:59 14:23 14:03 WBC 11.3 H RBC 4.41 L Immature Gran % (Auto) 1.0 H Neut % (Auto) 84.5 H Lymph % (Auto) 6.2 L Lymph # (Auto) 0.70 L Immature Gran # 0.11 H Absolute Neutrophils 9.56 H POC pCO2 POC pO2 POC HCO3 POC Total CO2 POC VBG HCO3 30.5 H POC VBG Total CO2 32.0 H POC VBG Base Excess 6.0 H* POC BUN BUN Creatinine POC Creatinine Glucose POC Glucose ALT Urine Appearance Hazy A Urine Protein 30 A Urine Ketones 5 A Ur Leukocyte Esterase 25 A Urine RBC 17 H Urine WBC 15 H Urine Bacteria Few A Urine Mucus Few A 02/05/23 14:03 WBC RBC Immature Gran % (Auto) Neut % (Auto) Lymph % (Auto) Lymph # (Auto) Immature Gran # Absolute Neutrophils POC pCO2 POC pO2 POC HCO3 POC Total CO2 POC VBG HCO3 POC VBG Total CO2 POC VBG Base Excess POC BUN 30 H BUN Creatinine POC Creatinine 2.0 H Glucose POC Glucose 109 H ALT Urine Appearance Urine Protein Urine Ketones Ur Leukocyte Esterase Urine RBC Urine WBC Urine Bacteria Urine Mucus Meds: Medications Acetaminophen (Acetaminophen 325 Mg Tablet) 650 mg PO Q6HP PRN; Protocol PRN Reason: Per Pain Protocol/Fever > 101 Albuterol/Ipratropium (Ipratropium/Albuterol 3 Ml Ampul.Neb) 3 ml NEB QID [facility] Last Admin: 02/06/23 08:25 Dose: 3 ml Albuterol/Ipratropium (Ipratropium/Albuterol 3 Ml Ampul.Neb) 3 ml NEB Q4HP PRN PRN Reason: Shortness Of Breath Last Admin: 02/06/23 04:55 Dose: 3 ml Bisacodyl (Bisacodyl 10 Mg Supp.Rect) 10 mg [place] Q2-3DAYS PRN PRN Reason: Constipation Budesonide (Budesonide 0.5 Mg/2 Ml Ampul.Neb) 0.5 mg NEB Q12 [facility] Last Admin: 02/06/23 08:25 Dose: 0.5 mg Buspirone HCl (Buspirone 15 Mg Tablet) 15 mg PO BID [facility] Last Admin: 02/06/23 09:19 Dose: 15 mg Diltiazem HCl (Diltiazem 180 Mg Cap.Xl.24h) 180 mg PO DAILY [facility] Last Admin: 02/06/23 09:19 Dose: 180 mg Docusate Sodium (Docusate Sodium 100 Mg Capsule) 100 mg PO BID [facility] Last Admin: 02/06/23 09:21 Dose: Not Given Donepezil HCl (Donepezil 10 Mg Tablet) 5 mg PO QDAY [facility] Last Admin: 02/06/23 09:20 Dose: 5 mg Guaifenesin (Guaifenesin 600 Mg Tab.Sr.12h) 1,200 mg PO BID [facility] Last Admin: 02/06/23 09:19 Dose: 1,200 mg Hydralazine HCl (Hydralazine 20 Mg/Ml Vial) 10 mg IV Q4HP PRN PRN Reason: Hypertension Last Admin: 02/06/23 12:33 Dose: 10 mg Ceftriaxone Sodium 2 gm/ (Dextrose) 50 mls @ 100 mls/hr IV Q24H [facility]; Protocol Last Infusion: 02/06/23 10:34 Dose: Infused Iron Carb/Multivit/Electric Scoop Operator/Folic Acid (Multivit,Ther Iron,Ca,Fa & Min 1 Tablet) 1 tab PO DAILY [facility] Last Admin: 02/06/23 09:19 Dose: 1 tab Magnesium Hydroxide (Magnesium Hydroxide 30 Ml Oral.Susp) 30 ml PO DAILYP PRN PRN Reason: Constipation Ondansetron HCl (Ondansetron 4 Mg/2 Ml Vial) 4 mg IV Q6HP PRN PRN Reason: Nausea And Vomiting [facility] ([facility] Mg [facility] Last Admin: 02/06/23 09:20 Dose: 30 mg Senna (Sennosides 1 Tablet) 2 tab PO HS [facility] Last Admin: 02/05/23 23:10 Dose: Not Given Sodium Chloride (0.9 % Sodium Chloride 10 Ml Syringe) 10 ml IV Q8 [facility] Last Admin: 02/06/23 12:34 Dose: 10 ml Tamsulosin HCl (Tamsulosin 0.4 Mg Capsule) 0.4 mg PO QDAY [facility] Last Admin: 02/06/23 09:20 Dose: 0.4 mg Trazodone HCl (Trazodone Hcl 50 Mg Tablet) 25 mg PO HSP PRN PRN Reason: Insomnia Last Admin: 02/05/23 21:45 Dose: 25 mg Vitamin D (Vitamin D3 125 Mcg Tablet) 125 mcg PO BID [facility] Last Admin: 02/06/23 09:20 Dose: 125 mcg A/P Narrative A/P Narrative: A/P: *UTI: -Continue ceftriaxone. Follow urine culture *Acute encephalopathy:Likely in the setting of UTI with underlying dementia -chronically on steroids which can cause mental status changes however encephalopathy is acute *End-stage COPD w/chronic hypoxic respiratory failure (4-5L@home): -Patient chronically on prednisone 30 mg daily. He follows up with pulmonology -He is so disabled that he cannot ambulate and is pretty much bedbound from COPD. -Chest x-ray with some right midlung atelectasis but no clear infiltrate -We will continue with DuoNebs, budesonide -IV Solu-Medrol x1 and then continue with prednisone 30 mg from tomorrow morning. *Hypertension: Will resume home dose diltiazem *CKD stage III: Serum creatinine at baseline. Avoid nephrotoxic's *Dementia: Continue donepezil *BPH: Continue tamsulosin *Vitamin D deficiency: Continue vitamin D supplementation *Generalized weakness/deconditioning/poor functional status: Patient bedbound at home -He is so disabled that he cannot ambulate and is pretty much bedbound from COPD *prophylaxis : With SCDs CODE STATUS - DNR/DNI Time Spent With Patient Time: Total time spent is greater than 50% in coordination of care (as documented) at patient's floor/unit and/or counseling patient: QUALITY VTE Deep Vein Thrombosis/Pulmonary Embolism Present on Admission: No
[2023-02-06] MEDS: traZODone HCL 50 MG TABLET PO PRN (21:56)
[2023-02-06] MEDS: SENNOSIDES 1 TABLET PO SCH ×2 (21:56→22:06)
[2023-02-07] MEDS: 0.9 % SODIUM CHLORIDE 10 ML SYRINGE IV SCH ×4 (00:46→20:59)
[2023-02-07] MEDS: hydrALAZINE 20 MG/ML VIAL IV PRN (05:38)
[2023-02-07 06:31] LABS: Basophils # (Auto) 0.02 K/mcL (0.00-0.30); Basophils % (Auto) 0.2 % (0.0-2.0); Eosinophils # (Auto) 0.01 K/mcL (0.00-0.70); Eosinophils % (Auto) 0.1 % (0.0-7.0); Hematocrit 42.1 % (40.1-51.0); Hemoglobin 13.2 g/dL (13.7-17.5); Lymphocytes # (Auto) 0.52 K/mcL (1.50-4.80); Lymphocytes % (Auto) 4.7 % (15.5-49.0); Mean Cell Volume 99.3 fL (80.0-100.0); Mean Corpuscular HGB Conc 31.4 g/dL (31.0-36.0); Mean Platelet Volume 9.4 fL (8.8-12.5); Monocytes # (Auto) 0.92 K/mcL (0.10-0.90); Monocytes % (Auto) 8.3 % (1.0-12.0); Neutrophils % (Auto) 85.9 % (38.0-78.0); Platelet Count 175 K/mcL (140-440); RBC 4.24 M/mcL (4.63-6.08); Red Cell Distribution Width 14.4 % (11.5-14.5)
[2023-02-07 07:10] LABS: ALT/SGPT 38 U/L (<40); AST/SGOT 20 U/L (<40); Albumin 3.6 gm/dL (3.2-5.2); Albumin/Globulin Ratio 1.8 (1.0-2.3); Alkaline Phosphatase 68 U/L (39-117); Bilirubin,Direct < 0.2 mg/dL (0-0.3); Bilirubin,Total 0.3 mg/dL (0.1-1.0); Blood Urea Nitrogen 33 mg/dL (8-23); Calcium 9.1 mg/dL (8.6-10.4); Carbon Dioxide 24 mmol/L (22-30); Chloride 106 mmol/L (96-108); Glomerular Filtration Rate 34; Glucose 132 mg/dL (70-105); Lactate Dehydrogenase 278 U/L (135-225); Triglycerides 109 mg/dL (<150); Uric Acid 6.9 mg/dL (2.5-8.0)
--- NOTE | 2023-02-07 07:25 | Internal Med Progress Note ---
SUBJECTIVE Subjective Patient information: Note initiated : 02/07/23 at 7:24 am Service Date, if different from initiated Date: [] Patient: Musa Mcgill 82 y/o M admitted on 02/05/23 for Shortness of Breath. 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 reported patient was talking about snow grader when there is no snow. They reported patient breathing is chronically bad however there has not been any recent change. Patient has chronic mild edema of lower extremity, his echocardiogram from 12/26/2022 was reviewed which shows low normal EF of 50-55% no significant diastolic or valvular dysfunction. On presentation patient with mild tachycardia of 94. WBC 11.3, hemoglobin 13.7, VBG with pH 7.39, PCO2 50, PO2 30. Lactic acid 1.0, sodium 143, potassium 3.4. BUN 30, creatinine 2.0 close to his baseline. UA positive for leukocyte esterase, RBC, WBC, bacteria. Chest x-ray with atelectasis in the right midlung but no clear infiltrate. Admission was requested. 02/06. Leukocytosis resolved, WBC 10,000 down from 11.3. Hemoglobin 14.1. Serum creatinine down to 1.7 from 2.0 on admission. Blood culture and urine culture pending. Daughter and present at bedside. They reported patient is still hallucinating. Family thinks this is relatively new, RT reported that when patient came for PFTs a month ago he was confused with some hallucinatory behavior. Discussed CT head, they did not want to do it. They agreed with obtaining ABGs first and giving more time for antibiotics to work, they do not want him to be treated very aggressively, since then know he has end-stage COPD. 02/07 Patient with increased confusion and hallucinations at night. Patient continuing on home dose prednisone 30 mg daily. Pending urine culture. Creatinine 1.8 was 1.7 yesterday. Appears to be near baseline. Start Zyprexa nightly. Patient has edema to lower extremities. Will give Lasix. Review of Systems: Unable to obtain due to significant hearing impairment PHYSICAL EXAM General: Alert, Awake, No acute Distress, chronically ill-appearing Eyes/N/T: EOMI, no scleral icterus, Head/Neck: neck supple, CV: RRR, No murmurs, Pulm: occ mild wheeze, prolonged exp phase, no respiratory distress Abd: soft, nontender, +BS x4 Ext: no clubbing/cyanosis, b/l LE 2+ edema, nontender Neuro: Alert, no focal deficits, moves all extremities, , sensations intact b/l upper/lower Psychiatric: Skin: warm/dry, normal color Constitutional Vitals: Vital Signs Temp Pulse Resp BP Pulse Ox O2 Del Method O2 Flow Rate 97.0 F 100 H 19 148/77 99 Nasal Cannula 4 02/07/23 04:04 02/07/23 06:12 02/07/23 04:04 02/07/23 06:12 02/07/23 04:04 02/07/23 04:04 02/07/23 04:04 Period Temp Pulse Resp BP Sys/Kelley Pulse Ox O2 Del Method O2 Flow Rate Last 24 Hr 97.0 F-99.0 F 87-103 19-24 111-180/66-94 89-99 Nasal Cannula- Nasal Cannula 4-4 Intake and Output 02/06/23 02/07/23 02/07/23 19:59 03:59 11:59 Intake Total 170 500 Output Total 4 2 Balance 166 498 Weight 78.199 kg 77.746 kg Intake & Output: Intake & Output 02/06/23 02/07/23 02/07/23 19:59 03:59 11:59 Intake Total 170 500 Output Total 4 2 Balance 166 498 Weight 78.199 kg 77.746 kg Intake: Nourishment/Supplement quantity 120 (ml) Oral 50 500 Output: # of times incontinent of urine 4 2 Other: Meal Lunch Percent of Meal Consumed Refused Feeding Ability Assist with Tray Set Up Nourishment/Supplement name ensure Stool Size Large Stool Color Brown Stool Consistency Soft # Voids 1 # Bowel Movements 1 OBJ DATA Labs 02/07/23 05:39 02/07/23 05:39 Labs: Abnormal Lab Results 02/07/23 02/07/23 02/06/23 05:39 05:39 11:29 WBC RBC 4.24 L Hgb 13.2 L Immature Gran % (Auto) 0.8 H Neut % (Auto) 85.9 H Lymph % (Auto) 4.7 L Lymph # (Auto) 0.52 L [place] # (Auto) 0.92 H Immature Gran # 0.09 H Absolute Neutrophils 9.46 H POC pCO2 48.0 H POC pO2 75 L POC HCO3 26.8 H POC Total CO2 28.0 H POC VBG HCO3 POC VBG Total CO2 POC VBG Base Excess POC BUN BUN 33 H Creatinine 1.8 H POC Creatinine Glucose 132 H POC Glucose ALT Lactate Dehydrogenase 278 H Total Protein 5.6 L Globulin 2.0 L Urine Appearance Urine Protein Urine Ketones Ur Leukocyte Esterase Urine RBC Urine WBC Urine Bacteria Urine Mucus 02/06/23 02/06/23 02/05/23 05:29 05:29 14:59 WBC RBC 4.59 L Hgb Immature Gran % (Auto) 1.0 H Neut % (Auto) 93.9 H Lymph % (Auto) 2.4 L Lymph # (Auto) 0.24 L [place] # (Auto) Immature Gran # 0.10 H Absolute Neutrophils 9.42 H POC pCO2 POC pO2 POC HCO3 POC Total CO2 POC VBG HCO3 POC VBG Total CO2 POC VBG Base Excess POC BUN BUN 28 H Creatinine 1.7 H POC Creatinine Glucose 129 H POC Glucose ALT 41 H Lactate Dehydrogenase Total Protein Globulin Urine Appearance Hazy A Urine Protein 30 A Urine Ketones 5 A Ur Leukocyte Esterase 25 A Urine RBC 17 H Urine WBC 15 H Urine Bacteria Few A Urine Mucus Few A 02/05/23 02/05/23 02/05/23 14:23 14:03 14:03 WBC 11.3 H RBC 4.41 L Hgb Immature Gran % (Auto) 1.0 H Neut % (Auto) 84.5 H Lymph % (Auto) 6.2 L Lymph # (Auto) 0.70 L [place] # (Auto) Immature Gran # 0.11 H Absolute Neutrophils 9.56 H POC pCO2 POC pO2 POC HCO3 POC Total CO2 POC VBG HCO3 30.5 H POC VBG Total CO2 32.0 H POC VBG Base Excess 6.0 H* POC BUN 30 H BUN Creatinine POC Creatinine 2.0 H Glucose POC Glucose 109 H ALT Lactate Dehydrogenase Total Protein Globulin Urine Appearance Urine Protein Urine Ketones Ur Leukocyte Esterase Urine RBC Urine WBC Urine Bacteria Urine Mucus Meds: Medications Acetaminophen (Acetaminophen 325 Mg Tablet) 650 mg PO Q6HP PRN; Protocol PRN Reason: Per Pain Protocol/Fever > 101 Albuterol/Ipratropium (Ipratropium/Albuterol 3 Ml Ampul.Neb) 3 ml NEB QID [facility] Last Admin: 02/06/23 20:18 Dose: 3 ml Albuterol/Ipratropium (Ipratropium/Albuterol 3 Ml Ampul.Neb) 3 ml NEB Q4HP PRN PRN Reason: Shortness Of Breath Last Admin: 02/06/23 04:55 Dose: 3 ml Bisacodyl (Bisacodyl 10 Mg Supp.Rect) 10 mg NM Q2-3DAYS PRN PRN Reason: Constipation Budesonide (Budesonide 0.5 Mg/2 Ml Ampul.Neb) 0.5 mg NEB Q12 [facility] Last Admin: 02/06/23 20:17 Dose: 0.5 mg Buspirone HCl (Buspirone 15 Mg Tablet) 15 mg PO BID [facility] Last Admin: 02/06/23 21:56 Dose: 15 mg Diltiazem HCl (Diltiazem 180 Mg Cap.Xl.24h) 180 mg PO DAILY [facility] Last Admin: 02/06/23 09:19 Dose: 180 mg Docusate Sodium (Docusate Sodium 100 Mg Capsule) 100 mg PO BID [facility] Last Admin: 02/06/23 22:05 Dose: Not Given Donepezil HCl (Donepezil 10 Mg Tablet) 5 mg PO QDAY [facility] Last Admin: 02/06/23 09:20 Dose: 5 mg Guaifenesin (Guaifenesin 600 Mg Tab.Sr.12h) 1,200 mg PO BID [facility] Last Admin: 02/06/23 22:00 Dose: 1,200 mg Hydralazine HCl (Hydralazine 20 Mg/Ml Vial) 10 mg IV Q4HP PRN PRN Reason: Hypertension Last Admin: 02/07/23 05:38 Dose: 10 mg Ceftriaxone Sodium 2 gm/ (Dextrose) 50 mls @ 100 mls/hr IV Q24H [facility]; Protocol Last Infusion: 02/06/23 10:34 Dose: Infused Iron Carb/Multivit/[place]/Folic Acid (Multivit,Ther Iron,Ca,Fa & Min 1 Tablet) 1 tab PO DAILY [facility] Last Admin: 02/06/23 09:19 Dose: 1 tab Labetalol HCl (Labetalol 5 Mg/Ml Ml) 0 mg IV Q2HP PRN PRN Reason: Hypertension Magnesium Hydroxide (Magnesium Hydroxide 30 Ml Oral.Susp) 30 ml PO DAILYP PRN PRN Reason: Constipation Ondansetron HCl (Ondansetron 4 Mg/2 Ml Vial) 4 mg IV Q6HP PRN PRN Reason: Nausea And Vomiting Prednisone (Pred[facility]one 10 Mg Tablet) [facility] Last Admin: 02/06/23 09:20 Dose: 30 mg Senna (Sennosides 1 Tablet) 2 tab PO [facility] Last Admin: 02/06/23 22:06 Dose: Not Given Sodium Chloride (0.9 % Sodium Chloride 10 Ml Syringe) 10 ml IV Q8 [facility] Last Admin: 02/07/23 05:38 Dose: 10 ml Tamsulosin HCl (Tamsulosin 0.4 Mg Capsule) 0.4 mg PO QDAY [facility] Last Admin: 02/06/23 09:20 Dose: 0.4 mg Trazodone HCl (Trazodone Hcl 50 Mg Tablet) 50 mg PO [facility] PRN PRN Reason: Insomnia Last Admin: 02/06/23 21:56 Dose: 50 mg Vitamin D (Vitamin D3 125 Mcg Tablet) 125 mcg PO BID [facility] Last Admin: 02/06/23 21:56 Dose: 125 mcg A/P Narrative A/P Narrative: A/P: *UTI( ): -Continue ceftriaxone. pending urine culture *Acute encephalopathy:Likely in the setting of UTI with underlying dementia -chronically on steroids which can cause mental status changes however encephalopathy is acute *End-stage COPD w/chronic hypoxic respiratory failure (4-5L@home): -Patient chronically on prednisone 30 mg daily. He follows up with pulmonology -He is so disabled that he cannot ambulate and is pretty much bedbound from COPD. -Chest x-ray with some right midlung atelectasis but no clear infiltrate -We will continue with DuoNebs, budesonide -s/po Solu-Medrol x1 and then continue with home prednisone 30mg daily *Hypertension: Will resume home dose diltiazem *CKD stage III: Serum creatinine at baseline. Avoid nephrotoxic's *Dementia: Continue donepezil -zyprexa qhs start *BPH: Continue tamsulosin *Vitamin D deficiency: Continue vitamin D supplementation *Generalized weakness/deconditioning/poor functional status: Patient bedbound at home -He is so disabled that he cannot ambulate and is pretty much bedbound from COPD *Insomnia: melatonin/benadryl, will also be on qhs zyprexa *prophylaxis: lovenox CODE STATUS - DNR/DNI Time Spent With Patient Time: Total time spent is greater than 50% in coordination of care (as documented) at patient's floor/unit and/or counseling patient: Subsequent: Total time with patient: 50 - 65 Minutes QUALITY VTE Deep Vein Thrombosis/Pulmonary Embolism Present on Admission: No
[2023-02-07] MEDS: BUDESONIDE 0.5 MG/2 ML AMPUL.NEB NEB SCH ×2 (08:49→20:28)
[2023-02-07] MEDS: IPRATROPIUM/ALBUTEROL 3 ML AMPUL.NEB NEB SCH ×4 (08:49→20:29)
[2023-02-07] MEDS: DONEPEZIL 10 MG TABLET PO SCH (09:14)
[2023-02-07] MEDS: busPIRone 15 MG TABLET PO SCH ×2 (09:14→20:58)
[2023-02-07] MEDS: predniSONE 10 MG TABLET PO SCH (09:15)
[2023-02-07] MEDS: MULTIVIT,THER IRON,CA,FA & MIN 1 TABLET PO SCH (09:15)
[2023-02-07] MEDS: DOCUSATE SODIUM 100 MG CAPSULE PO SCH ×2 (09:15→20:58)
[2023-02-07] MEDS: TAMSULOSIN 0.4 MG CAPSULE PO SCH (09:15)
[2023-02-07] MEDS: DILTIAZEM 180 MG CAP.XL.24H PO SCH (09:15)
[2023-02-07] MEDS: guaiFENesin 600 MG TAB.SR.12H PO SCH ×2 (09:15→20:58)
[2023-02-07] MEDS: ENOXAPARIN 40 MG/0.4 ML SYRINGE SQ SCH (09:16)
[2023-02-07] MEDS: VITAMIN D3 125 MCG TABLET PO SCH ×2 (09:16→20:58)
[2023-02-07] MEDS ORDERED: FUROSEMIDE 40 MG/4 ML VIAL IV ONE (09:23)
[2023-02-07] MEDS: cefTRIAXone 2 GM in DEXTROSE 5% IN WATER 50 ML IV SCH (09:25)
--- NOTE | 2023-02-07 10:30 | Cat Scan Report ---
INDICATION: Altered mental status COMPARISON: None. TECHNIQUE: Axial noncontrast-enhanced images through the brain. Sagittally and coronally reformatted images. FINDINGS: Cerebral hemispheres:Negative. No intra-axial abnormality. No intra-axial hematoma. No localized mass effect. There is cerebral atrophy. There is white matter abnormality consistent with small vessel ischemic change. No focal attenuation abnormality. Brainstem and cerebellum:No intra-axial abnormality Extra-axial:No acute hemorrhage. No subdural or epidural hematoma. No subarachnoid hemorrhage. Basilar cisterns are normal Calvarial:No calvarial fracture. No lytic lesion Temporal bones are negative. No destructive lesions Soft tissue, orbits, sinuses:Orbits and visualized facial soft tissues and paranasal sinuses are negative IMPRESSION: [No right no acute intracranial hemorrhage. No acute abnormality Cerebral atrophy and white matter abnormality as above The exam was performed using radiation dose optimization techniques including, but not limited to, automated exposure control, adjustment of the mA and/or kV according to patient size and use of iterative reconstruction technique. Interpreted and Authenticated by: Wero More 02/07/23
--- NOTE | 2023-02-07 10:37 | Discharge Summary ---
Discharge Provider Provider IMPORTANT FOLLOW-UP INFORMATION FOR PCP: Patient information: Note initiated : 02/07/23 at 10:35 am Service Date, if different from initiated Date: [] Patient: Musa Mcgill 82 y/o M admitted on 02/05/23 for Shortness of Breath. 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 reported patient was talking about snow grader when there is no snow. They reported patient breathing is chronically bad however there has not been any recent change. Patient has chronic mild edema of lower extremity, his echocardiogram from 12/26/2022 was reviewed which shows low normal EF of 50-55% no significant diastolic or valvular dysfunction. On presentation patient with mild tachycardia of 94. WBC 11.3, hemoglobin 13.7, VBG with pH 7.39, PCO2 50, PO2 30. Lactic acid 1.0, sodium 143, potassium 3.4. BUN 30, creatinine 2.0 close to his baseline. UA positive for leukocyte esterase, RBC, WBC, bacteria. Chest x-ray with atelectasis in the right midlung but no clear infiltrate. Admission was requested. 02/06. Leukocytosis resolved, WBC 10,000 down from 11.3. Hemoglobin 14.1. Serum creatinine down to 1.7 from 2.0 on admission. Blood culture and urine culture pending. Daughter and present at bedside. They reported patient is still hallucinating. Family thinks this is relatively new, RT reported that when patient came for PFTs a month ago he was confused with some hallucinatory behavior. Discussed CT head, they did not want to do it. They agreed with obtaining ABGs first and giving more time for antibiotics to work, they do not want him to be treated very aggressively, since then know he has end-stage COPD. 02/07 Patient with increased confusion and hallucinations at night. Patient continuing on home dose prednisone 30 mg daily. Pending urine culture. Creatinine 1.8 was 1.7 yesterday. Appears to be near baseline. Start Zyprexa nightly. Patient has edema to lower extremities. Will give Lasix. 02/08 No overnight event or new complaints. Patient did sleep better overnight. His creatinine bumped up to 2.0. . Check urine studies. Lower extremity edema still present but slightly improved. Chest x-ray shows bibasilar infiltrates. 02/09 No overnight event or new complaints. Granddaughter at bedside. Patient started on prednisone 30 mg daily by PCP about 5 weeks ago and was to stay on that until seen by Dr. Lomeli for which she had appointment but missed. We will start weaning prednisone to 20 mg daily. Creatinine 2.0 similar to yesterday. Nephrology consult for renal evaluation. Per daughter he has significantly declined since he was hit with pneumonia in October. 02/10 Patient seems to be in good spirits today. No new complaints. Creatinine improving. Seen by nephrology. A/P: *UTI:UC no growth, stopped abx *Acute encephalopathy:Likely in the setting of UTI with underlying dementia and possibly steroids *End-stage COPD w/chronic hypoxic respiratory failure (4-5L@home): -Patient on prednisone 30mg daily for past 4-5 weeks, started by PCP, is supposed to follow up with pulmonology -decreased prednisone to 20mg daily, further tapering per Pulm -He is so disabled that he cannot ambulate and is pretty much bedbound from COPD. *bibasilar infiltrates on CXR: -on abx, pct unremarkable, has been on rocephin. ?fluid-was given lasix several days ago with bump in Cr -echo in december with normal EF and diastolic fxn *Hypertension: home dose diltiazem *?SHAHEEN on CKD stage III (baseline this year has been 1.5-1.8): back down to 1.7 *Dementia: Continue donepezil *BPH: Continue tamsulosin *Vitamin D deficiency: Continue vitamin D supplementation *Generalized weakness/deconditioning/poor functional status: Patient bedbound at home -He is so disabled that he cannot ambulate and is pretty much bedbound from COPD *Insomnia: Discharge diagnosis: Acute encephalopathy UTI end-stage COPD hypertension CKD dementia BPH Secondary discharge diagnosis: Vitamin D deficiency generalized weakness deconditioning poor functional status insomnia Time Spent with Patient Time attestation: Total time spent providing and/or coordinating discharge services: Time spent: Greater than 30 minutes EXAM Constitutional Vitals: Temp Pulse Resp BP Pulse Ox O2 Del Method O2 Flow Rate 97.5 F 89 14 129/59 98 Nasal Cannula 4 02/07/23 08:00 02/07/23 08:51 02/07/23 08:00 02/07/23 08:00 02/07/23 08:51 02/07/23 08:51 02/07/23 08:51 Discharge Data Data Completed and Pending Labs on day of discharge: Labs from last 24 hours 02/07/23 02/07/23 02/06/23 05:39 05:39 11:29 WBC 11.0 RBC 4.24 L Hgb 13.2 L Hct 42.1 MCV 99.3 MCH 31.1 MCHC 31.4 RDW 14.4 Plt Count 175 MPV 9.4 Immature Gran % (Auto) 0.8 H Neut % (Auto) 85.9 H Lymph % (Auto) 4.7 L [place] % (Auto) 8.3 Eos % (Auto) 0.1 Baso % (Auto) 0.2 Lymph # (Auto) 0.52 L [place] # (Auto) 0.92 H Eos # (Auto) 0.01 Baso # (Auto) 0.02 Immature Gran # 0.09 H Absolute Neutrophils 9.46 H POC pH 7.35 POC pCO2 48.0 H POC pO2 75 L POC HCO3 26.8 H POC Total CO2 28.0 H POC ABG Base Excess 1.0 ABG Lactic Acid 0.6 Hgb O2 Saturation 94.0 Sodium 141 Potassium 4.0 Chloride 106 Carbon Dioxide 24 Anion Gap 11.0 BUN 33 H Creatinine 1.8 H GFR Calculation 34 Glucose 132 H Uric Acid 6.9 Calcium 9.1 Phosphorus 4.0 Magnesium 2.1 Total Bilirubin 0.3 Direct Bilirubin < 0.2 GGT 31 AST 20 ALT 38 Alkaline Phosphatase 68 Lactate Dehydrogenase 278 H Total Protein 5.6 L Albumin 3.6 Globulin 2.0 L Albumin/Globulin Ratio 1.8 Triglycerides 109 Preliminary micro results at discharge 02/05/23 14:19 Blood Culture - Preliminary Blood 02/05/23 14:05 Blood Culture - Preliminary Blood Discharge Plan Patient/Caregiver Discharge Instructions Activity: increase activity as tolerated Diet: Regular Diet Prescriptions: Continued (DME) Permanent Disabled Parking Qty: 2 0RF Rx Instructions: Patient cannot walk 200 feet without stopping to rest. Walking is severely limited due to arthritic and orthopedic condition. diltiazem HCl [Matzim [place]] 180 mg tablet extended release 24 hr 180 mg PO QDAY Trelegy Ellipta 200-62.5-25 mcg blister with device 1 inh inhalation QDAY cholecalciferol (vitamin D3) 125 mcg (5,000 unit) tablet 125 mcg PO BID ipratropium-albuterol 0.5 mg-3 mg(2.5 mg base)/3 mL solution for nebulization 3 ml inhalation Q6H PRN (Reason: Wheezing) Mucinex 1,200 mg tablet extended release 12hr 1,200 mg PO BID multivitamin Tablet 1 tab PO QAM tamsulosin 0.4 mg capsule 0.4 mg PO QDAY donepezil 5 mg tablet 5 mg PO QDAY buspirone 15 mg Tablet 15 mg PO BID Changed prednisone 10 mg tablet 20 mg PO QDAY Qty: 1 0RF Other Ambulatory Orders: OT Discharge Order (Routine) Location: None Selected Ordered By: Horacio Dunn Physical Therapy at Discharge - General (Routine) Location: None Selected Ordered By: Horacio Dunn Follow Up Plan Follow up with: Dionicio Read MD [Primary Care Provider] - Juan Lomeli MD [Physician] - (further prednisone taper per Pulmonology.) Patient Disposition: Xfer SNF Plan of Treatment: 1. Check PVRV and increase flomax if indicated 2. Avoid loop diuretics 3. Avoid nephrotoxic Rx 4. Trend labs upon discharge. Prognosis: Fair Rehab Potential: Fair I certify that the patient requires SNF services: Yes Overall status at discharge: patient is progressing back to baseline Discharge Orders: Discharge Order (Routine); Ordered 02/10/23 Ordered By: Horacio Dunn QUALITY VTE Deep Vein Thrombosis/Pulmonary Embolism Present on Admission: No
[2023-02-07] MEDS: MELATONIN 3 MG TABLET PO SCH (19:30)
[2023-02-07] MEDS: OLANZapine 5 MG TABLET PO SCH (20:58)
[2023-02-07] MEDS: traZODone HCL 50 MG TABLET PO PRN (20:59)
[2023-02-07] MEDS: SENNOSIDES 1 TABLET PO SCH (22:04)
[2023-02-08] MEDS: 0.9 % SODIUM CHLORIDE 10 ML SYRINGE IV SCH ×3 (04:54→21:36)
[2023-02-08 06:42] LABS: Blood Urea Nitrogen 37 mg/dL (8-23); Calcium 9.2 mg/dL (8.6-10.4); Carbon Dioxide 28 mmol/L (22-30); Chloride 103 mmol/L (96-108); Glomerular Filtration Rate 30; Glucose 131 mg/dL (70-105)
--- NOTE | 2023-02-08 08:05 | Internal Med Progress Note ---
SUBJECTIVE Subjective Patient information: Note initiated : 02/08/23 at 7:59 am Service Date, if different from initiated Date: [] Patient: Musa Mcgill 82 y/o M admitted on 02/05/23 for Shortness of Breath. 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 reported patient was talking about snow grader when there is no snow. They reported patient breathing is chronically bad however there has not been any recent change. Patient has chronic mild edema of lower extremity, his echocardiogram from 12/26/2022 was reviewed which shows low normal EF of 50-55% no significant diastolic or valvular dysfunction. On presentation patient with mild tachycardia of 94. WBC 11.3, hemoglobin 13.7, VBG with pH 7.39, PCO2 50, PO2 30. Lactic acid 1.0, sodium 143, potassium 3.4. BUN 30, creatinine 2.0 close to his baseline. UA positive for leukocyte esterase, RBC, WBC, bacteria. Chest x-ray with atelectasis in the right midlung but no clear infiltrate. Admission was requested. 02/06. Leukocytosis resolved, WBC 10,000 down from 11.3. Hemoglobin 14.1. Serum creatinine down to 1.7 from 2.0 on admission. Blood culture and urine culture pending. Daughter and present at bedside. They reported patient is still hallucinating. Family thinks this is relatively new, RT reported that when patient came for PFTs a month ago he was confused with some hallucinatory behavior. Discussed CT head, they did not want to do it. They agreed with obtaining ABGs first and giving more time for antibiotics to work, they do not want him to be treated very aggressively, since then know he has end-stage COPD. 02/07 Patient with increased confusion and hallucinations at night. Patient continuing on home dose prednisone 30 mg daily. Pending urine culture. Creatinine 1.8 was 1.7 yesterday. Appears to be near baseline. Start Zyprexa nightly. Patient has edema to lower extremities. Will give Lasix. 02/08 No overnight event or new complaints. Patient did sleep better overnight. His creatinine bumped up to 2.0. . Check urine studies. Lower extremity edema still present but slightly improved. Chest x-ray shows bibasilar infiltrates. Review of Systems: Unable to obtain due to significant hearing impairment PHYSICAL EXAM General: Alert, Awake, No acute Distress, chronically ill-appearing Eyes/N/T: EOMI, no scleral icterus, Head/Neck: neck supple, CV: RRR, No murmurs, Pulm: mild diminished b/l bases, prolonged exp phase, no wheezing, no respiratory distress Abd: soft, nontender, +BS x4 Ext: no clubbing/cyanosis, b/l LE 2+ edema, nontender Neuro: Alert, no focal deficits, moves all extremities, , sensations intact b/l upper/lower Psychiatric: Skin: warm/dry, normal color Constitutional Vitals: Vital Signs Temp Pulse Resp BP Pulse Ox O2 Del Method O2 Flow Rate 97.5 F 83 20 127/69 94 Nasal Cannula 3 02/08/23 04:22 02/08/23 04:22 02/08/23 04:22 02/08/23 04:22 02/08/23 04:22 02/08/23 04:22 02/08/23 04:22 Period Temp Pulse Resp BP Sys/Kelley Pulse Ox O2 Del Method O2 Flow Rate Last 24 Hr 97.4 F-98.0 F 73-89 12-20 127-140/59-72 4-98 Nasal Cannula- Room Air 3-99 Intake and Output 02/07/23 02/08/23 02/08/23 19:59 03:59 11:59 Intake Total 480 354 111 Output Total 1 150 2 Balance 479 204 109 Weight 78.517 kg Intake & Output: Intake & Output 02/07/23 02/08/23 02/08/23 19:59 03:59 11:59 Intake Total 480 354 111 Output Total 1 150 2 Balance 479 204 109 Weight 78.517 kg Intake: Oral 240 354 111 GI Tube Flush 240 Output: Void Amount 150 # of times incontinent of urine 1 2 Other: Meal Dinner Percent of Meal Consumed 25% Feeding Ability Assist with Tray Set Up Urine Appearance Clear Urine Color Yellow Yellow Urine Odor Normal Normal OBJ DATA Labs 02/07/23 05:39 02/08/23 05:20 Labs: Abnormal Lab Results 02/08/23 02/07/23 02/07/23 05:20 05:39 05:39 WBC RBC 4.24 L Hgb 13.2 L Immature Gran % (Auto) 0.8 H Neut % (Auto) 85.9 H Lymph % (Auto) 4.7 L Lymph # (Auto) 0.52 L [place] # (Auto) 0.92 H Immature Gran # 0.09 H Absolute Neutrophils 9.46 H POC pCO2 POC pO2 POC HCO3 POC Total CO2 POC VBG HCO3 POC VBG Total CO2 POC VBG Base Excess POC BUN BUN 37 H 33 H Creatinine 2.0 H 1.8 H POC Creatinine Glucose 131 H 132 H POC Glucose ALT Lactate Dehydrogenase 278 H Total Protein 5.6 L Globulin 2.0 L Urine Appearance Urine Protein Urine Ketones Ur Leukocyte Esterase Urine RBC Urine WBC Urine Bacteria Urine Mucus 02/06/23 02/06/23 02/06/23 11:29 05:29 05:29 WBC RBC 4.59 L Hgb Immature Gran % (Auto) 1.0 H Neut % (Auto) 93.9 H Lymph % (Auto) 2.4 L Lymph # (Auto) 0.24 L [place] # (Auto) Immature Gran # 0.10 H Absolute Neutrophils 9.42 H POC pCO2 48.0 H POC pO2 75 L POC HCO3 26.8 H POC Total CO2 28.0 H POC VBG HCO3 POC VBG Total CO2 POC VBG Base Excess POC BUN BUN 28 H Creatinine 1.7 H POC Creatinine Glucose 129 H POC Glucose ALT 41 H Lactate Dehydrogenase Total Protein Globulin Urine Appearance Urine Protein Urine Ketones Ur Leukocyte Esterase Urine RBC Urine WBC Urine Bacteria Urine Mucus 02/05/23 02/05/23 02/05/23 14:59 14:23 14:03 WBC 11.3 H RBC 4.41 L Hgb Immature Gran % (Auto) 1.0 H Neut % (Auto) 84.5 H Lymph % (Auto) 6.2 L Lymph # (Auto) 0.70 L [place] # (Auto) Immature Gran # 0.11 H Absolute Neutrophils 9.56 H POC pCO2 POC pO2 POC HCO3 POC Total CO2 POC VBG HCO3 30.5 H POC VBG Total CO2 32.0 H POC VBG Base Excess 6.0 H* POC BUN BUN Creatinine POC Creatinine Glucose POC Glucose ALT Lactate Dehydrogenase Total Protein Globulin Urine Appearance Hazy A Urine Protein 30 A Urine Ketones 5 A Ur Leukocyte Esterase 25 A Urine RBC 17 H Urine WBC 15 H Urine Bacteria Few A Urine Mucus Few A 02/05/23 14:03 WBC RBC Hgb Immature Gran % (Auto) Neut % (Auto) Lymph % (Auto) Lymph # (Auto) [place] # (Auto) Immature Gran # Absolute Neutrophils POC pCO2 POC pO2 POC HCO3 POC Total CO2 POC VBG HCO3 POC VBG Total CO2 POC VBG Base Excess POC BUN 30 H BUN Creatinine POC Creatinine 2.0 H Glucose POC Glucose 109 H ALT Lactate Dehydrogenase Total Protein Globulin Urine Appearance Urine Protein Urine Ketones Ur Leukocyte Esterase Urine RBC Urine WBC Urine Bacteria Urine Mucus Meds: Medications Acetaminophen (Acetaminophen 325 Mg Tablet) 650 mg PO Q6HP PRN; Protocol PRN Reason: Per Pain Protocol/Fever > 101 Albuterol/Ipratropium (Ipratropium/Albuterol 3 Ml Ampul.Neb) 3 ml NEB QID [facility] Last Admin: 02/07/23 20:29 Dose: 3 ml Albuterol/Ipratropium (Ipratropium/Albuterol 3 Ml Ampul.Neb) 3 ml NEB Q4HP PRN PRN Reason: Shortness Of Breath Last Admin: 02/06/23 04:55 Dose: 3 ml Bisacodyl (Bisacodyl 10 Mg Supp.Rect) 10 mg [place] Q2-3DAYS PRN PRN Reason: Constipation Budesonide (Budesonide 0.5 Mg/2 Ml Ampul.Neb) 0.5 mg NEB Q12 [facility] Last Admin: 02/07/23 20:28 Dose: 0.5 mg Buspirone HCl (Buspirone 15 Mg Tablet) 15 mg PO BID [facility] Last Admin: 02/07/23 20:58 Dose: 15 mg Diltiazem HCl (Diltiazem 180 Mg Cap.Xl.24h) 180 mg PO DAILY [facility] Last Admin: 02/07/23 09:15 Dose: 180 mg Docusate Sodium (Docusate Sodium 100 Mg Capsule) 100 mg PO BID [facility] Last Admin: 02/07/23 20:58 Dose: 100 mg Donepezil HCl (Donepezil 10 Mg Tablet) 5 mg PO QDAY [facility] Last Admin: 02/07/23 09:14 Dose: 5 mg Enoxaparin Sodium (Enoxaparin 40 Mg/0.4 Ml Syringe) 40 mg SQ DAILY [facility] Last Admin: 02/07/23 09:16 Dose: 40 mg Guaifenesin (Guaifenesin 600 Mg Tab.Sr.12h) 1,200 mg PO BID [facility] Last Admin: 02/07/23 20:58 Dose: 1,200 mg Hydralazine HCl (Hydralazine 20 Mg/Ml Vial) 10 mg IV Q4HP PRN PRN Reason: Hypertension Last Admin: 02/07/23 05:38 Dose: 10 mg Ceftriaxone Sodium 2 gm/ (Dextrose) 50 mls @ 100 mls/hr IV Q24H [facility]; Protocol Last Infusion: 02/07/23 10:00 Dose: Infused Iron Carb/Multivit/[place]/Folic Acid (Multivit,Ther Iron,Ca,Fa & Min 1 Tablet) 1 tab PO DAILY [facility] Last Admin: 02/07/23 09:15 Dose: 1 tab Labetalol HCl (Labetalol 5 Mg/Ml Ml) 0 mg IV Q2HP PRN PRN Reason: Hypertension Magnesium Hydroxide (Magnesium Hydroxide 30 Ml Oral.Susp) 30 ml PO DAILYP PRN PRN Reason: Constipation Melatonin (Melatonin 3 Mg Tablet) 3 mg PO QPM@1900 [facility] Last Admin: 02/07/23 19:30 Dose: 3 mg Olanzapine (Olanzapine 5 Mg Tablet) 5 mg PO [facility] Last Admin: 02/07/23 20:58 Dose: 5 mg Ondansetron HCl (Ondansetron 4 Mg/2 Ml Vial) 4 mg IV Q6HP PRN PRN Reason: Nausea And Vomiting Prednisone (Prednisone 10 Mg Tablet) 30 mg PO [facility] Last Admin: 02/07/23 09:15 Dose: 30 mg Senna (Sennosides 1 Tablet) 2 tab PO [facility] Last Admin: 02/07/23 22:04 Dose: Not Given Sodium Chloride (0.9 % Sodium Chloride 10 Ml Syringe) 10 ml IV Q8 [facility] Last Admin: 02/08/23 04:54 Dose: 10 ml Tamsulosin HCl (Tamsulosin 0.4 Mg Capsule) 0.4 mg PO QDAY [facility] Last Admin: 02/07/23 09:15 Dose: 0.4 mg Trazodone HCl (Trazodone Hcl 50 Mg Tablet) 50 mg PO HSP PRN PRN Reason: Insomnia Last Admin: 02/07/23 20:59 Dose: 50 mg Vitamin D (Vitamin D3 125 Mcg Tablet) 125 mcg PO BID [facility] Last Admin: 02/07/23 20:58 Dose: 125 mcg A/P Narrative A/P Narrative: A/P: *UTI: negative cx -d/c ceftriaxone. *Acute encephalopathy:Likely in the setting of UTI with underlying dementia -chronically on steroids which can cause mental status changes however encephalopathy is acute *End-stage COPD w/chronic hypoxic respiratory failure (4-5L@home): -Patient chronically on prednisone 30 mg daily. He follows up with pulmonology -He is so disabled that he cannot ambulate and is pretty much bedbound from COPD. -Chest x-ray with some right midlung atelectasis but no clear infiltrate -We will continue with DuoNebs, budesonide -s/po Solu-Medrol x1 and then continue with home prednisone 30mg daily *bibasilar infiltrates on CXR: -on abx, check pct. ?fluid-was given lasix yesterday with bump in Cr today -echo in december with normal EF and diastolic fxn *Hypertension: Will resume home dose diltiazem *SHAHEEN on CKD stage III: Avoid nephrotoxic's -Cr mildly elevating, monitor -urine studies pending *Dementia: Continue donepezil -zyprexa qhs started *BPH: Continue tamsulosin *Vitamin D deficiency: Continue vitamin D supplementation *Generalized weakness/deconditioning/poor functional status: Patient bedbound at home -He is so disabled that he cannot ambulate and is pretty much bedbound from COPD *Insomnia: melatonin/benadryl, will also be on qhs zyprexa -slept better *prophylaxis: lovenox CODE STATUS - DNR/DNI Time Spent With Patient Time: Total time spent is greater than 50% in coordination of care (as documented) at patient's floor/unit and/or counseling patient: Subsequent: Total time with patient: 50 - 65 Minutes QUALITY VTE Deep Vein Thrombosis/Pulmonary Embolism Present on Admission: No
[2023-02-08] MEDS: IPRATROPIUM/ALBUTEROL 3 ML AMPUL.NEB NEB SCH ×2 (09:10→21:04)
[2023-02-08] MEDS: BUDESONIDE 0.5 MG/2 ML AMPUL.NEB NEB SCH ×2 (09:10→21:05)
--- NOTE | 2023-02-08 09:29 | XRay Report ---
INDICATION: f/u abnormal 02/05 film TECHNIQUE: AP portable semiupright chest x-ray COMPARISON: Previous chest x-rays dated 02/05/2023, 12/26/2022 FINDINGS: Lungs:Again demonstrated is a focal density in the right midlung. This remains most consistent with atelectasis. Interval development of bilateral, bibasilar infiltrates. Appearance may be due to pulmonary edema or pneumonia. Heart, vascular:Mild cardiomegaly. Pulmonary vascularity is prominent. There is peribronchial thickening and there are septal lines consistent with interstitial edema. Clinical correlation follow-up radiographs recommended Mediastinum, rajat:No mediastinal widening. No hilar mass Pleura:No pleural fluid. No pleural-based mass or calcification Skeletal:Negative. IMPRESSION: 1. Bibasilar infiltrates are new since previous examination. Findings may be due to pulmonary edema or pneumonia 2. No change in focal parenchymal density in the right midlung Interpreted and Authenticated by: Wero More 02/08/23
[2023-02-08] MEDS: guaiFENesin 600 MG TAB.SR.12H PO SCH ×2 (09:54→21:36)
[2023-02-08] MEDS: DONEPEZIL 10 MG TABLET PO SCH (09:58)
[2023-02-08] MEDS: VITAMIN D3 125 MCG TABLET PO SCH ×2 (09:58→21:35)
[2023-02-08] MEDS: TAMSULOSIN 0.4 MG CAPSULE PO SCH (09:58)
[2023-02-08] MEDS: ENOXAPARIN 40 MG/0.4 ML SYRINGE SQ SCH (09:58)
[2023-02-08] MEDS: MULTIVIT,THER IRON,CA,FA & MIN 1 TABLET PO SCH (09:58)
[2023-02-08] MEDS: DOCUSATE SODIUM 100 MG CAPSULE PO SCH ×2 (09:58→21:35)
[2023-02-08] MEDS: busPIRone 15 MG TABLET PO SCH ×2 (09:59→21:35)
[2023-02-08] MEDS: DILTIAZEM 180 MG CAP.XL.24H PO SCH (09:59)
[2023-02-08] MEDS: predniSONE 10 MG TABLET PO SCH (09:59)
[2023-02-08] MEDS: cefTRIAXone 2 GM in DEXTROSE 5% IN WATER 50 ML IV SCH (10:27)
[2023-02-08] MEDS: IPRATROPIUM/ALBUTEROL 3 ML AMPUL.NEB NEB PRN (17:36)
[2023-02-08] MEDS: MELATONIN 3 MG TABLET PO SCH (19:17)
[2023-02-08] MEDS: SENNOSIDES 1 TABLET PO SCH (21:35)
[2023-02-08] MEDS: traZODone HCL 50 MG TABLET PO PRN (21:35)
[2023-02-08] MEDS: OLANZapine 5 MG TABLET PO SCH (21:35)
[2023-02-09] MEDS: 0.9 % SODIUM CHLORIDE 10 ML SYRINGE IV SCH ×3 (04:05→21:44)
[2023-02-09 06:40] LABS: ALT/SGPT 38 U/L (<40); AST/SGOT 16 U/L (<40); Albumin 3.4 gm/dL (3.2-5.2); Albumin/Globulin Ratio 1.8 (1.0-2.3); Alkaline Phosphatase 76 U/L (39-117); Bilirubin,Direct < 0.2 mg/dL (0-0.3); Bilirubin,Total 0.2 mg/dL (0.1-1.0); Blood Urea Nitrogen 38 mg/dL (8-23); Calcium 9.2 mg/dL (8.6-10.4); Carbon Dioxide 28 mmol/L (22-30); Chloride 103 mmol/L (96-108); Globulin 1.9 gm/dL (2.2-3.7); Glomerular Filtration Rate 30; Glucose 161 mg/dL (70-105); Lactate Dehydrogenase 238 U/L (135-225); Phosphorous 3.6 mg/dL (2.5-4.5); Triglycerides 99 mg/dL (<150); Uric Acid 6.9 mg/dL (2.5-8.0)
--- NOTE | 2023-02-09 07:48 | Internal Med Progress Note ---
SUBJECTIVE Subjective Patient information: Note initiated : 02/09/23 at 7:45 am Service Date, if different from initiated Date: [] Patient: Musa Mcgill 82 y/o M admitted on 02/05/23 for Shortness of Breath. 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 reported patient was talking about snow grader when there is no snow. They reported patient breathing is chronically bad however there has not been any recent change. Patient has chronic mild edema of lower extremity, his echocardiogram from 12/26/2022 was reviewed which shows low normal EF of 50-55% no significant diastolic or valvular dysfunction. On presentation patient with mild tachycardia of 94. WBC 11.3, hemoglobin 13.7, VBG with pH 7.39, PCO2 50, PO2 30. Lactic acid 1.0, sodium 143, potassium 3.4. BUN 30, creatinine 2.0 close to his baseline. UA positive for leukocyte esterase, RBC, WBC, bacteria. Chest x-ray with atelectasis in the right midlung but no clear infiltrate. Admission was requested. 02/06. Leukocytosis resolved, WBC 10,000 down from 11.3. Hemoglobin 14.1. Serum creatinine down to 1.7 from 2.0 on admission. Blood culture and urine culture pending. Daughter and present at bedside. They reported patient is still hallucinating. Family thinks this is relatively new, RT reported that when patient came for PFTs a month ago he was confused with some hallucinatory behavior. Discussed CT head, they did not want to do it. They agreed with obtaining ABGs first and giving more time for antibiotics to work, they do not want him to be treated very aggressively, since then know he has end-stage COPD. 02/07 Patient with increased confusion and hallucinations at night. Patient continuing on home dose prednisone 30 mg daily. Pending urine culture. Creatinine 1.8 was 1.7 yesterday. Appears to be near baseline. Start Zyprexa nightly. Patient has edema to lower extremities. Will give Lasix. 02/08 No overnight event or new complaints. Patient did sleep better overnight. His creatinine bumped up to 2.0. . Check urine studies. Lower extremity edema still present but slightly improved. Chest x-ray shows bibasilar infiltrates. 02/09 No overnight event or new complaints. Granddaughter at bedside. Patient started on prednisone 30 mg daily by PCP about 5 weeks ago and was to stay on that until seen by Dr. Lomeli for which she had appointment but missed. We will start weaning prednisone to 20 mg daily. Creatinine 2.0 similar to yesterday. Nephrology consult for renal evaluation. Per daughter he has significantly declined since he was hit with pneumonia in October. Review of Systems: Unable to obtain due to significant hearing impairment PHYSICAL EXAM General: Alert, Awake, No acute Distress, chronically ill-appearing Eyes/N/T: EOMI, no scleral icterus, Head/Neck: neck supple, CV: RRR, No murmurs, Pulm: mild diminished b/l bases, prolonged exp phase, no wheezing, no respiratory distress Abd: soft, nontender, +BS x4 Ext: no clubbing/cyanosis, b/l LE 2+ edema improving, nontender Neuro: Alert, no focal deficits, moves all extremities, , sensations intact b/l upper/lower Psychiatric: Skin: warm/dry, normal color Constitutional Vitals: Vital Signs Temp Pulse Resp BP Pulse Ox O2 Del Method O2 Flow Rate 98.5 F 82 19 150/52 98 Nasal Cannula 98 02/09/23 03:55 02/09/23 03:55 02/09/23 03:55 02/09/23 03:55 02/09/23 03:55 02/09/23 03:55 02/09/23 03:55 Period Temp Pulse Resp BP Sys/Kelley Pulse Ox O2 Del Method O2 Flow Rate Last 24 Hr 97.4 F-98.5 F 71-85 16-22 132-150/52-74 90-98 Nasal Cannula- Room Air 3-98 Intake and Output 02/08/23 02/09/23 02/09/23 19:59 03:59 11:59 Intake Total 750 Output Total 100 400 Balance -100 350 Weight 78.471 kg Intake & Output: Intake & Output 02/08/23 02/09/23 02/09/23 19:59 03:59 11:59 Intake Total 750 Output Total 100 400 Balance -100 350 Weight 78.471 kg Intake: Oral 750 Output: Void Amount 100 400 Other: Meal Breakfast Percent of Meal Consumed 75% Feeding Ability Independent Urine Appearance Clear Clear Urine Color Yellow Yellow Urine Odor Normal Normal OBJ DATA Labs 02/07/23 05:39 02/09/23 05:30 Labs: Abnormal Lab Results 02/09/23 02/08/23 02/08/23 05:30 05:20 05:20 RBC Hgb Immature Gran % (Auto) Neut % (Auto) Lymph % (Auto) Lymph # (Auto) [place] # (Auto) Immature Gran # Absolute Neutrophils POC pCO2 POC pO2 POC HCO3 POC Total CO2 BUN 38 H Creatinine 2.0 H Glucose 161 H Lactate Dehydrogenase 238 H NT-Pro-B Natriuret Pep 1202.0 H Total Protein 5.3 L Globulin 1.9 L Procalcitonin 0.19 H 02/08/23 02/07/23 02/07/23 05:20 05:39 05:39 RBC 4.24 L Hgb 13.2 L Immature Gran % (Auto) 0.8 H Neut % (Auto) 85.9 H Lymph % (Auto) 4.7 L Lymph # (Auto) 0.52 L [place] # (Auto) 0.92 H Immature Gran # 0.09 H Absolute Neutrophils 9.46 H POC pCO2 POC pO2 POC HCO3 POC Total CO2 BUN 37 H 33 H Creatinine 2.0 H 1.8 H Glucose 131 H 132 H Lactate Dehydrogenase 278 H NT-Pro-B Natriuret Pep Total Protein 5.6 L Globulin 2.0 L Procalcitonin 02/06/23 11:29 RBC Hgb Immature Gran % (Auto) Neut % (Auto) Lymph % (Auto) Lymph # (Auto) [place] # (Auto) Immature Gran # Absolute Neutrophils POC pCO2 48.0 H POC pO2 75 L POC HCO3 26.8 H POC Total CO2 28.0 H BUN Creatinine Glucose Lactate Dehydrogenase NT-Pro-B Natriuret Pep Total Protein Globulin Procalcitonin Meds: Medications Acetaminophen (Acetaminophen 325 Mg Tablet) 650 mg PO Q6HP PRN; Protocol PRN Reason: Per Pain Protocol/Fever > 101 Albuterol/Ipratropium (Ipratropium/Albuterol 3 Ml Ampul.Neb) 3 ml NEB Q4HP PRN PRN Reason: Shortness Of Breath Last Admin: 02/08/23 17:36 Dose: 3 ml Albuterol/Ipratropium (Ipratropium/Albuterol 3 Ml Ampul.Neb) 3 ml NEB BID [facility] Last Admin: 02/08/23 21:04 Dose: 3 ml Bisacodyl (Bisacodyl 10 Mg Supp.Rect) 10 mg [place] Q2-3DAYS PRN PRN Reason: Constipation Budesonide (Budesonide 0.5 Mg/2 Ml Ampul.Neb) 0.5 mg NEB Q12 [facility] Last Admin: 02/08/23 21:05 Dose: 0.5 mg Buspirone HCl (Buspirone 15 Mg Tablet) 15 mg PO BID [facility] Last Admin: 02/08/23 21:35 Dose: 15 mg Diltiazem HCl (Diltiazem 180 Mg Cap.Xl.24h) 180 mg PO DAILY [facility] Last Admin: 02/08/23 09:59 Dose: 180 mg Docusate Sodium (Docusate Sodium 100 Mg Capsule) 100 mg PO BID [facility] Last Admin: 02/08/23 21:35 Dose: 100 mg Donepezil HCl (Donepezil 10 Mg Tablet) 5 mg PO QDAY [facility] Last Admin: 02/08/23 09:58 Dose: 5 mg Enoxaparin Sodium (Enoxaparin 40 Mg/0.4 Ml Syringe) 40 mg SQ DAILY [facility] Last Admin: 02/08/23 09:58 Dose: 40 mg Guaifenesin (Guaifenesin 600 Mg Tab.Sr.12h) 1,200 mg PO BID [facility] Last Admin: 02/08/23 21:36 Dose: 1,200 mg Hydralazine HCl (Hydralazine 20 Mg/Ml Vial) 10 mg IV Q4HP PRN PRN Reason: Hypertension Last Admin: 02/07/23 05:38 Dose: 10 mg Ceftriaxone Sodium 2 gm/ (Dextrose) 50 mls @ 100 mls/hr IV Q24H [facility]; Protocol Last Infusion: 02/08/23 11:05 Dose: Infused Iron Carb/Multivit/[place]/Folic Acid (Multivit,Ther Iron,Ca,Fa & Min 1 Tablet) 1 tab PO DAILY [facility] Last Admin: 02/08/23 09:58 Dose: 1 tab Labetalol HCl (Labetalol 5 Mg/Ml Ml) 0 mg IV Q2HP PRN PRN Reason: Hypertension Magnesium Hydroxide (Magnesium Hydroxide 30 Ml Oral.Susp) 30 ml PO DAILYP PRN PRN Reason: Constipation Melatonin (Melatonin 3 Mg Tablet) 3 mg PO QPM@1900 [facility] Last Admin: 02/08/23 19:17 Dose: 3 mg Olanzapine (Olanzapine 5 Mg Tablet) 5 mg PO [facility] Last Admin: 02/08/23 21:35 Dose: 5 mg Ondansetron HCl (Ondansetron 4 Mg/2 Ml Vial) 4 mg IV Q6HP PRN PRN Reason: Nausea And Vomiting Prednisone (Prednisone 10 Mg Tablet) 30 mg PO [facility] Last Admin: 02/08/23 09:59 Dose: 30 mg Senna (Sennosides 1 Tablet) 2 tab PO [facility] Last Admin: 02/08/23 21:35 Dose: 2 tab Sodium Chloride (0.9 % Sodium Chloride 10 Ml Syringe) 10 ml IV Q8 [facility] Last Admin: 02/09/23 04:05 Dose: 10 ml Tamsulosin HCl (Tamsulosin 0.4 Mg Capsule) 0.4 mg PO QDAY [facility] Last Admin: 02/08/23 09:58 Dose: 0.4 mg Trazodone HCl (Trazodone Hcl 50 Mg Tablet) 50 mg PO HSP PRN PRN Reason: Insomnia Last Admin: 02/08/23 21:35 Dose: 50 mg Vitamin D (Vitamin D3 125 Mcg Tablet) 125 mcg PO BID [facility] Last Admin: 02/08/23 21:35 Dose: 125 mcg A/P Narrative A/P Narrative: A/P: *UTI: negative cx -d/c ceftriaxone. *Acute encephalopathy:Likely in the setting of UTI with underlying dementia and possibly steroids -has been higher dose steroids for month *End-stage COPD w/chronic hypoxic respiratory failure (4-5L@home): -Patient on prednisone 30mg daily for past 4-5 weeks, started by PCP, is supposed to follow up with pulmonology -He is so disabled that he cannot ambulate and is pretty much bedbound from COPD. -Chest x-ray with some right midlung atelectasis but no clear infiltrate -We will continue with DuoNebs, budesonide -decrease prednisone to 20mg daily *bibasilar infiltrates on CXR: -on abx, pct unremarkable, has been on rocephin. ?fluid-was given lasix several days ago with bump in Cr -echo in december with normal EF and diastolic fxn *Hypertension: Will resume home dose diltiazem *?SHAHEEN on CKD stage III (baseline this year has been 1.5-1.8): Avoid nephrotoxic's -Cr at 2.0, monitor -FeUrea >35% *Dementia: Continue donepezil -zyprexa qhs started *BPH: Continue tamsulosin *Vitamin D deficiency: Continue vitamin D supplementation *Generalized weakness/deconditioning/poor functional status: Patient bedbound at home -He is so disabled that he cannot ambulate and is pretty much bedbound from COPD *Insomnia: melatonin/benadryl, will also be on qhs zyprexa -slept better *prophylaxis: lovenox CODE STATUS - DNR/DNI Time Spent With Patient Time: Total time spent is greater than 50% in coordination of care (as documented) at patient's floor/unit and/or counseling patient: Subsequent: Total time with patient: 50 - 65 Minutes QUALITY VTE Deep Vein Thrombosis/Pulmonary Embolism Present on Admission: No
[2023-02-09] MEDS: TAMSULOSIN 0.4 MG CAPSULE PO SCH (08:41)
[2023-02-09] MEDS: DOCUSATE SODIUM 100 MG CAPSULE PO SCH ×2 (08:41→21:42)
[2023-02-09] MEDS: DONEPEZIL 10 MG TABLET PO SCH (08:41)
[2023-02-09] MEDS: DILTIAZEM 180 MG CAP.XL.24H PO SCH (08:41)
[2023-02-09] MEDS: busPIRone 15 MG TABLET PO SCH ×2 (08:41→22:37)
[2023-02-09] MEDS: guaiFENesin 600 MG TAB.SR.12H PO SCH ×2 (08:41→21:43)
[2023-02-09] MEDS: MULTIVIT,THER IRON,CA,FA & MIN 1 TABLET PO SCH (08:41)
[2023-02-09] MEDS: VITAMIN D3 125 MCG TABLET PO SCH ×2 (08:42→21:42)
[2023-02-09] MEDS: ENOXAPARIN 40 MG/0.4 ML SYRINGE SQ SCH (08:42)
[2023-02-09] MEDS: predniSONE 10 MG TABLET PO SCH (08:42)
[2023-02-09] MEDS: cefTRIAXone 2 GM in DEXTROSE 5% IN WATER 50 ML IV SCH (09:04)
[2023-02-09] MEDS: IPRATROPIUM/ALBUTEROL 3 ML AMPUL.NEB NEB SCH ×2 (09:26→21:00)
[2023-02-09] MEDS: BUDESONIDE 0.5 MG/2 ML AMPUL.NEB NEB SCH ×2 (09:26→21:00)
--- NOTE | 2023-02-09 13:07 | Nephrology Consult Note ---
HPI Date of Consult Consult Date: 02/09/23 Requesting physician: Prem Calle Primary Care Provider: Dionicio Read Consult Narrative Patient Information: Note initiated : 02/09/23 at 1:02 pm Service Date, if different from initiated Date: [] Patient: Musa Mcgill 82 y/o M admitted on 02/05/23 for Shortness of Breath. 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 Was on diltiazem and donepezil as outpatient without bradycardia. Also tamsulosin for BPH. Urinary frequency was an issue. Was admitted for alteration in MS. W/U negative. Some pyuria but no bacteria on U/A. Culture negative and no signs of sepsis. 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 Treated for pyuria and given 40 mg IV furosemide on 02/07/2023. Hard to make much out of the trend in SCr but I suspect his underlying renal disease is NSAID related (and if due to tubulointerstitial process he is volume sensitive and furosemide would have d ecreased GFR) and perhaps incomplete bladder emptying. No need for diuretics to my eye. Good news is altered mentation is improved. Serum Creratinine Ordering Physician:Inocencia Baer DNP Date of Service:06/13/17 Procedure(s):MR abdomen wo/w con History: Indeterminate mass in the upper pole of left kidney Technique: Multiplanar imaging was obtained in multiple pulse sequences pre and post gadolinium contrast. Findings: Medially in the upper pole of the left kidney there is a 1.7 x 2.3 cm mass. On the precontrast T1-weighted views it has higher signal than the adjacent renal cortex. On the out of phase T1-weighted views there is suppression of signal within the lesion. This indicates that the mass contains lipid. This correlates with the findings on the recent CT done on 06/07/17. There is no appreciable enhancement following contrast. There are several simple cysts in both kidneys. The largest is located laterally in the midportion of the right kidney and measures 2.2 x 2.8 cm. There are two small cysts in the left kidney which are less than 1 cm in size. Focal cortical scarring is seen posteriorly in the middle to lower portion of the left kidney. The left kidney is mildly atrophic compared to the right. No hydronephrosis is present. The adrenals, pancreas and visualized portions of liver and spleen are normal. The patient has advanced lumbar spondylosis. There is moderate to severe spinal canal stenosis at L1-2, L2-3 and L3-4. The lower lumbar spine is outside of the field of view on the axial images.. Postcontrast view show no abnormal enhancing lesion within the abdomen. 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 Scattered simple cysts in both kidneys Spinal canal stenosis in the lumbar spine due to spurs and bulging discs Interpreted and Authenticated by: José Miguel Wheat 06/13/[address] this visit with no acute changes compared to the prior white mater, microvascular disease. 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 and albumin creatinine ratio <30 mg/g (Chronic) TIN (tubulointerstitial nephritis) (Chronic) BPH loc w urin obs/LUTS (Chronic) Abnormal magnetic resonance imaging of kidney (Chronic) Chronic pain (Chronic) History of colonoscopy (Chronic) Hypertension, essential, benign (Chronic) Hypogonadism (Chronic) 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) Chronic obstructive pulmonary disease (Chronic) Aphthous ulcer (Chronic) Basal cell carcinoma (Chronic) Chest pain (Chronic) Hypertension (Chronic) Skin cancer, basal cell (Chronic) Renal insufficiency (Chronic) Laceration (Chronic) Encounter for removal of sutures (Chronic) Acute exacerbation of chronic obstructive pulmonary disease (Chronic) Pneumonia (Chronic) Weakness (Chronic) SOB (shortness of breath) (Chronic) Vitamin D deficiency (Chronic) Essential hypertension (Chronic) Diverticulosis of intestine (Chronic) Weight gain (Chronic) Cough (Chronic) Wheezing (Chronic) Muscle weakness (Chronic) Difficulty walking (Chronic) Dizziness (Chronic) Dyspnea (Chronic) At high risk for falls (Chronic) COPD mixed type (Acute) Hypoxemia (Acute) Acute cystitis with hematuria (Acute) Acute confusion (Acute) Medical History Acute exacerbation of chronic obstructive pulmonary disease Aphthous ulcer At high risk for falls Basal cell carcinoma Chest pain Chronic obstructive pulmonary disease Chronic pain COPD mixed type Cough Difficulty walking Diverticulosis of intestine Dizziness Dyspnea Encounter for removal of sutures Essential hypertension Hypertension Hypertension, essential, benign Hypogonadism Testicular hypofunction/other hypogonadism Hypoxemia Laceration Moderate COPD (Chronic Obstructive Pulmonary Disease) Muscle weakness Pneumonia Renal insufficiency hypertensive kidney disease Rotator cuff impingement syndrome Skin cancer, basal cell SOB (shortness of breath) Vitamin D deficiency Weakness Weight gain Wheezing Surgical History History of colonoscopy 06/14/2013 - Colonic polyps, rectal polyps, diverticulosis Family History Brother Cardiac disease, Onset Age: 59 Kidney disease Mother Cardiac disease Social History (Updated 12/05/22 @ 15:31 by Dipika Kenyon RN) marital status: occupational status: retired pets and animals: No sexually active: No smoking status: Former smoker quit date: 10/28/22 pack-years: 68 smoking status stop date: 11/06/22 alcohol intake frequency: holiday/special occasion only substance use type: does not use seatbelt use: always carbon monox detector in home: Yes MEDS/ALLERGIES Home Medications and Allergies Home Medications Medication Instructions Recorded Confirmed Type Permanent Disabled Parking #2 ea 12/02/16 02/05/23 Rx cholecalciferol (vitamin D3) 125 125 mcg PO BID 11/13/22 02/05/23 History mcg (5,000 unit) tablet diltiazem HCl 180 mg 180 mg PO QDAY 11/13/22 02/05/23 History tablet,extended release 24 hr (Matzim [place]) fluticasone fur. 200 mcg-umeclid 1 inh inhalation QDAY 11/13/22 02/05/23 History 62.5 mcg-vilant 25 mcg inhalat.powder (Trelegy Ellipta) donepezil 5 mg tablet 5 mg PO QDAY 12/05/22 02/05/23 History guaifenesin 1,200 mg tablet, 1,200 mg PO BID 12/05/22 02/05/23 History extended release 12 hr (Mucinex) ipratropium 0.5 mg-albuterol 3 mg 3 ml inhalation Q6H PRN Wheezing 12/05/22 02/05/23 History (2.5 mg base)/3 mL nebulization soln multivitamin 1 tab PO QAM 12/05/22 02/05/23 History tamsulosin 0.4 mg capsule 0.4 mg PO QDAY 12/05/22 02/05/23 History buspirone 15 mg tablet 15 mg PO BID 02/06/23 02/06/23 History prednisone 10 mg tablet 20 mg PO QDAY #1 tab 02/09/23 Rx Allergies Allergy/AdvReac Type Severity Reaction Status Date / Time dextromethorphan AdvReac Intermediate hallucinati Verified 02/05/23 17:50 ons Physical Examination Vital Signs Vital signs: Temp Pulse Resp BP Pulse Ox O2 Del Method O2 Flow Rate 37.1 C 70 22 140/66 95 Nasal Cannula 3 02/09/23 12:00 02/09/23 12:00 02/09/23 12:00 02/09/23 12:00 02/09/23 12:00 02/09/23 12:00 02/09/23 12:00 General Appearance General appearance: chronically ill and frail EENT EENT: mucous membranes moist and hearing intact (QAGAN TAYAGUNGIN) Neck Neck: no JVD Respiratory Respiratory: kyphosis Cardiovascular Cardiology: no murmurs, no gallops, regular rhythm, normal S1 and normal S2 Gastrointestinal Gastrointestinal: normoactive bowel sounds Integumentary Integumentary: warm and dry Neurologic Neurologic: no focal deficit, no asterixis and alert and oriented x3 (knew , president, what he had for breakfast, prior work so all in all back to baseline per ) Psychiatric Psychiatric: mood/affect appropriate Results Lab Results 02/07/23 05:39 02/09/23 05:30 Lab results: Most recent lab results Calcium 9.2 mg/dL (8.6-10.4) 02/09/23 05:30 Phosphorus 3.6 mg/dL (2.5-4.5) 02/09/23 05:30 Magnesium 2.1 mg/dL (1.6-2.5) 02/09/23 05:30 A/P Assessment and plan (1) CKD stage G3b/A1, GFR 30-44 and albumin creatinine ratio <30 mg/g: Status: Chronic Comment: Probably TIN from prior nsaids Diuretics would temporally worsen GFR Due to Hx of BPH and gu sx, check PVR and increase flomax if needed No Hx of proteinuria but now admit U/A with trace protein and blood - check U protein to creatinine ratio (2) TIN (tubulointerstitial nephritis): Assessment and plan: NSAID related with bland U/A Status: Chronic Comment: Avoid diuretics (3) Abnormal magnetic resonance imaging of kidney: Assessment and plan: Angiomyolipoma Status: Chronic Comment: Benign growth w/o enhancement on MRI (4) BPH loc w urin obs/LUTS: Plan: Already on flomax 0.4 mg qd Status: Chronic Comment: Check PVBV Sepsis Sepsis Identified: No Narrative A/P Narrative: 1. CKD g3b/A1 2. BPH with LUTs 3. 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 HTN on Diltiazem 5. Altered mental status Plan of Treatment: 1. Check PVRV and increase flomax if indicated 2. Avoid loop diuretics 3. Avoid nephrotoxic Rx 4. Trend labs upon discharge. Time Spent With Patient Time: Total time spent is greater than 50% in coordination of care (as documented) at patient's floor/unit and/or counseling patient: Initial: Total time with patient: 55 - 74 minutes Critical Care Time: No Attestation: Extensive chart review and face to face intervew with and discussion of plan with and nursing staff.
[2023-02-09] MEDS: MELATONIN 3 MG TABLET PO SCH (19:06)
[2023-02-09] MEDS: SENNOSIDES 1 TABLET PO SCH (21:42)
[2023-02-09] MEDS: traZODone HCL 50 MG TABLET PO PRN (21:43)
[2023-02-09] MEDS: OLANZapine 5 MG TABLET PO SCH (21:43)
[2023-02-10] MEDS: 0.9 % SODIUM CHLORIDE 10 ML SYRINGE IV SCH (04:16)
[2023-02-10 06:42] LABS: Appearance,Urine CLEAR (Clear); Bilirubin,Urine Negative (Negative); Color,Urine YELLOW; Culture Indicated,Urine No; Glucose,Urine (UA) Negative (Negative); Ketones,Urine Negative (Negative); Leukocyte Esterase,Urine Negative /uL (Negative); Nitrate,Urine Negative (Negative); Protein,Urine Negative (Negative); Specific Gravity,Urine 1.015 (1.000-1.035); Urine Blood Negative (Negative); Urobilinogen,Urine Negative
[2023-02-10 06:54] LABS: Blood Urea Nitrogen 39 mg/dL (8-23); Calcium 9.7 mg/dL (8.6-10.4); Carbon Dioxide 29 mmol/L (22-30); Chloride 101 mmol/L (96-108); Glomerular Filtration Rate 37; Glucose 110 mg/dL (70-105)
[2023-02-10 07:02] LABS: Sodium, Urine Random 59 mmol/L
[2023-02-10] MEDS ORDERED: predniSONE 10 MG TABLET PO SCH (08:00)
--- NOTE | 2023-02-10 08:10 | Nephrology Progress Note ---
SUBJECTIVE Subjective Patient information: Note initiated : 02/10/23 at 8:08 am Service Date, if different from initiated Date: [] Patient: Musa Mcgill 82 y/o M admitted on 02/05/23 for Shortness of Breath. Chief Complaint: [confusion] Interval history: Improved mentation after abx but no evidence of infection, true-true and unrelated? Probable has underlying Tubulointerstitial renal disease and volume sensitive so avoid dehydration. GFR back to baseline. Cannot explain the decline in mentation or its improvement but an acid/base or GFR reason in not likely. Serum Creatinine Pertinent ROS: No nephrotoxic Rx noted GFR back to baseline Placement pending Additional PMFSH (Level 3 Only): Nothing new Constitutional Vitals: Vital Signs Temp Pulse Resp BP Pulse Ox O2 Del Method O2 Flow Rate 36.3 C 70 19 142/64 98 Nasal Cannula 3 02/10/23 04:20 02/10/23 04:20 02/10/23 04:20 02/10/23 04:20 02/10/23 04:20 02/10/23 04:20 02/10/23 04:20 Period Temp Pulse Resp BP Sys/Kelley Pulse Ox O2 Del Method O2 Flow Rate Last 24 Hr 36.3 C-37.1 C 66-81 16-22 138-154/51-73 88-98 Nasal Cannula- Nasal Cannula 3-3 Intake and Output 02/09/23 02/10/23 02/10/23 19:59 03:59 11:59 Intake Total 930 300 450 Output Total 425 500 270 Balance 505 -200 180 Weight 77.337 kg Intake & Output: Intake & Output 02/09/23 02/10/23 02/10/23 19:59 03:59 11:59 Intake Total 930 300 450 Output Total 425 500 270 Balance 505 -200 180 Weight 77.337 kg Intake: IV 50 Rocephin 2 gm In Dextrose 5% in 50 Water 50 ml @ 100 mls/hr IV Q24H [facility] Rx#:[id number] Oral 880 300 450 Output: Void Amount 425 500 270 Other: Meal Lunch Percent of Meal Consumed 100% Feeding Ability Independent Urine Appearance Clear Clear Clear Urine Color Yellow Yellow Yellow Urine Odor Normal Normal Stool Size Large Stool Color Brown Stool Consistency Formed # Bowel Movements 1 General appearance: no acute distress Head Head exam: Present normal inspection Eye Eye exam: Present PERRL ENT ENT exam: Present mucous membranes moist Neck Neck exam: Present meningismus Respiratory Respiratory exam: Present rhonchi Cardiovascular Cardiovascular exam: Present normal rate and rhythm, +S1 and +S2; Absent gallop, irregular rhythm or rubs GI/Abdominal GI/Abdominal exam: Present normal bowel sounds Additional comments: PVR 59 cc on 02/10/2023 Extremities Exam Extremities exam: Absent pedal edema Neurological Exam Neurological exam: Present abnormal gait, alert and CN II-XII intact Skin Skin exam: Present dry A/P Assessment and plan (1) CKD stage G3b/A1, GFR 30-44 and albumin creatinine ratio <30 mg/g: Status: Chronic Comment: Probably TIN from prior nsaids Diuretics would temporally worsen GFR Due to Hx of BPH and gu sx, check PVR and increase flomax if needed No Hx of proteinuria but now admit U/A with trace protein and blood - check U protein to creatinine ratio => 0.34 with few RBC. (2) TIN (tubulointerstitial nephritis): Assessment and plan: NSAID related with bland U/A Status: Chronic Comment: Avoid diuretics (3) Abnormal magnetic resonance imaging of kidney: Assessment and plan: Angiomyolipoma Status: Chronic Comment: Benign growth w/o enhancement on MRI (4) BPH loc w urin obs/LUTS: Plan: Already on flomax 0.4 mg qd Status: Chronic Comment: Check PVBV => 59 cc on 02/09/3023 Sepsis Sepsis Identified: No Narrative A/P Narrative: 1. CKD g3b/A1 2. BPH with LUTs 3. 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 HTN on Diltiazem 5. Altered mental status Plan of Treatment: 1. Check PVRV and increase flomax if indicated 2. Avoid loop diuretics 3. Avoid nephrotoxic Rx 4. Trend labs upon discharge. Time Spent With Patient Time: Total time spent is greater than 50% in coordination of care (as documented) at patient's floor/unit and/or counseling patient: Initial: Total time with patient: 55 - 74 minutes Critical Care Time: No Attestation: Extensive chart review and face to face intervew with and discussion of pl an with and nursing staff. Spoke with daughter today.
--- NOTE | 2023-02-10 08:24 | Internal Med Progress Note ---
SUBJECTIVE Subjective Patient information: Note initiated : 02/10/23 at 8:21 am Service Date, if different from initiated Date: [] Patient: Musa Mcgill 82 y/o M admitted on 02/05/23 for Shortness of Breath. 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 reported patient was talking about snow grader when there is no snow. They reported patient breathing is chronically bad however there has not been any recent change. Patient has chronic mild edema of lower extremity, his echocardiogram from 12/26/2022 was reviewed which shows low normal EF of 50-55% no significant diastolic or valvular dysfunction. On presentation patient with mild tachycardia of 94. WBC 11.3, hemoglobin 13.7, VBG with pH 7.39, PCO2 50, PO2 30. Lactic acid 1.0, sodium 143, potassium 3.4. BUN 30, creatinine 2.0 close to his baseline. UA positive for leukocyte esterase, RBC, WBC, bacteria. Chest x-ray with atelectasis in the right midlung but no clear infiltrate. Admission was requested. 02/06. Leukocytosis resolved, WBC 10,000 down from 11.3. Hemoglobin 14.1. Serum creatinine down to 1.7 from 2.0 on admission. Blood culture and urine culture pending. Daughter and present at bedside. They reported patient is still hallucinating. Family thinks this is relatively new, RT reported that when patient came for PFTs a month ago he was confused with some hallucinatory behavior. Discussed CT head, they did not want to do it. They agreed with obtaining ABGs first and giving more time for antibiotics to work, they do not want him to be treated very aggressively, since then know he has end-stage COPD. 02/07 Patient with increased confusion and hallucinations at night. Patient continuing on home dose prednisone 30 mg daily. Pending urine culture. Creatinine 1.8 was 1.7 yesterday. Appears to be near baseline. Start Zyprexa nightly. Patient has edema to lower extremities. Will give Lasix. 02/08 No overnight event or new complaints. Patient did sleep better overnight. His creatinine bumped up to 2.0. . Check urine studies. Lower extremity edema still present but slightly improved. Chest x-ray shows bibasilar infiltrates. 02/09 No overnight event or new complaints. Granddaughter at bedside. Patient started on prednisone 30 mg daily by PCP about 5 weeks ago and was to stay on that until seen by Dr. Lomeli for which she had appointment but missed. We will start weaning prednisone to 20 mg daily. Creatinine 2.0 similar to yesterday. Nephrology consult for renal evaluation. Per daughter he has significantly declined since he was hit with pneumonia in October. 02/10 Patient seems to be in good spirits today. No new complaints. Creatinine improving. Seen by nephrology. Review of Systems: denies headache/fever/chills/nausea/vomiting/chest or abdominal pain/cough/dyspnea/diarrhea. Otherwise see above. PHYSICAL EXAM General: Alert, Awake, No acute Distress, chronically ill-appearing Eyes/N/T: EOMI, no scleral icterus, Head/Neck: neck supple, CV: RRR, No murmurs, Pulm: mild diminished b/l bases, prolonged exp phase, no wheezing, no respiratory distress Abd: soft, nontender, +BS x4 Ext: no clubbing/cyanosis, b/l LE 1+ edema improving, nontender Neuro: Alert, no focal deficits, moves all extremities, , sensations intact b/l upper/lower Psychiatric: Skin: warm/dry, normal color Constitutional Vitals: Vital Signs Temp Pulse Resp BP Pulse Ox O2 Del Method O2 Flow Rate 97.4 F 70 19 142/64 98 Nasal Cannula 3 02/10/23 04:20 02/10/23 04:20 02/10/23 04:20 02/10/23 04:20 02/10/23 04:20 02/10/23 04:20 02/10/23 04:20 Period Temp Pulse Resp BP Sys/Kelley Pulse Ox O2 Del Method O2 Flow Rate Last 24 Hr 97.4 F-98.7 F 66-81 16-22 138-154/51-73 88-98 Nasal Cannula- Nasal Cannula 3-3 Intake and Output 0602/10/23 02/10/23 19:59 03:59 11:59 Intake Total 930 300 450 Output Total 425 500 270 Balance 505 -200 180 Weight 77.337 kg Intake & Output: Intake & Output 02/09/23 02/10/23 02/10/23 19:59 03:59 11:59 Intake Total 930 300 450 Output Total 425 500 270 Balance 505 -200 180 Weight 77.337 kg Intake: IV 50 Rocephin 2 gm In Dextrose 5% in 50 Water 50 ml @ 100 mls/hr IV Q24H [facility] Rx#:[id number] Oral 880 300 450 Output: Void Amount 425 500 270 Other: Meal Lunch Percent of Meal Consumed 100% Feeding Ability Independent Urine Appearance Clear Clear Clear Urine Color Yellow Yellow Yellow Urine Odor Normal Normal Stool Size Large Stool Color Brown Stool Consistency Formed # Bowel Movements 1 OBJ DATA Labs 02/07/23 05:39 02/10/23 05:30 Labs: Abnormal Lab Results 02/10/23 02/09/23 02/08/23 05:30 05:30 05:20 Anion Gap 7.0 L BUN 39 H 38 H Creatinine 1.7 H 2.0 H Glucose 110 H 161 H Lactate Dehydrogenase 238 H NT-Pro-B Natriuret Pep 1202.0 H Total Protein 5.3 L Globulin 1.9 L Procalcitonin 02/08/23 02/08/23 05:20 05:20 Anion Gap BUN 37 H Creatinine 2.0 H Glucose 131 H Lactate Dehydrogenase NT-Pro-B Natriuret Pep Total Protein Globulin Procalcitonin 0.19 H Meds: Medications Acetaminophen (Acetaminophen 325 Mg Tablet) 650 mg PO Q6HP PRN; Protocol PRN Reason: Per Pain Protocol/Fever > 101 Albuterol/Ipratropium (Ipratropium/Albuterol 3 Ml Ampul.Neb) 3 ml NEB Q4HP PRN PRN Reason: Shortness Of Breath Last Admin: 02/08/23 17:36 Dose: 3 ml Albuterol/Ipratropium (Ipratropium/Albuterol 3 Ml Ampul.Neb) 3 ml NEB BID [facility] Last Admin: 02/09/23 21:00 Dose: 3 ml Bisacodyl (Bisacodyl 10 Mg Supp.Rect) 10 mg OH Q2-3DAYS PRN PRN Reason: Constipation Budesonide (Budesonide 0.5 Mg/2 Ml Ampul.Neb) 0.5 mg NEB Q12 [facility] Last Admin: 02/09/23 21:00 Dose: 0.5 mg Buspirone HCl (Buspirone 15 Mg Tablet) 15 mg PO BID [facility] Last Admin: 02/09/23 22:37 Dose: 15 mg Diltiazem HCl (Diltiazem 180 Mg Cap.Xl.24h) 180 mg PO DAILY [facility] Last Admin: 02/09/23 08:41 Dose: 180 mg Docusate Sodium (Docusate Sodium 100 Mg Capsule) 100 mg PO BID [facility] Last Admin: 02/09/23 21:42 Dose: 100 mg Donepezil HCl (Donepezil 10 Mg Tablet) 5 mg PO QDAY [facility] Last Admin: 02/09/23 08:41 Dose: 5 mg Enoxaparin Sodium (Enoxaparin 40 Mg/0.4 Ml Syringe) 40 mg SQ DAILY [facility] Last Admin: 02/09/23 08:42 Dose: 40 mg Guaifenesin (Guaifenesin 600 Mg Tab.Sr.12h) 1,200 mg PO BID [facility] Last Admin: 02/09/23 21:43 Dose: 1,200 mg Hydralazine HCl (Hydralazine 20 Mg/Ml Vial) 10 mg IV Q4HP PRN PRN Reason: Hypertension Last Admin: 02/07/23 05:38 Dose: 10 mg Iron Carb/Multivit/Arranging Funeral Director/Folic Acid (Multivit,Ther Iron,Ca,Fa & Min 1 Tablet) 1 tab PO DAILY [facility] Last Admin: 02/09/23 08:41 Dose: 1 tab Labetalol HCl (Labetalol 5 Mg/Ml Ml) 0 mg IV Q2HP PRN PRN Reason: Hypertension Magnesium Hydroxide (Magnesium Hydroxide 30 Ml Oral.Susp) 30 ml PO DAILYP PRN PRN Reason: Constipation Melatonin (Melatonin 3 Mg Tablet) 3 mg PO QPM@1900 [facility] Last Admin: 02/09/23 19:06 Dose: 3 mg Olanzapine (Olanzapine 5 Mg Tablet) 5 mg PO HS [facility] Last Admin: 02/09/23 21:43 Dose: 5 mg Ondansetron HCl (Ondansetron 4 Mg/2 Ml Vial) 4 mg IV Q6HP PRN PRN Reason: Nausea And Vomiting Prednisone (Prednisone 10 Mg Tablet) [address] [facility] Senna (Sennosides 1 Tablet) 2 tab PO HS [facility] Last Admin: 02/09/23 21:42 Dose: 2 tab Sodium Chloride (0.9 % Sodium Chloride 10 Ml Syringe) 10 ml IV Q8 [facility] Last Admin: 02/10/23 04:16 Dose: 10 ml Tamsulosin HCl (Tamsulosin 0.4 Mg Capsule) 0.4 mg PO QDAY [facility] Last Admin: 02/09/23 08:41 Dose: 0.4 mg Trazodone HCl (Trazodone Hcl 50 Mg Tablet) 50 mg PO HSP PRN PRN Reason: Insomnia Last Admin: 02/09/23 21:43 Dose: 50 mg Vitamin D (Vitamin D3 125 Mcg Tablet) 125 mcg PO BID [facility] Last Admin: 02/09/23 21:42 Dose: 125 mcg A/P Narrative A/P Narrative: A/P: *UTI: negative cx -d/c'd ceftriaxone. *Acute encephalopathy:Likely in the setting of UTI with underlying dementia and possibly steroids -has been higher dose steroids for month *End-stage COPD w/chronic hypoxic respiratory failure (4-5L@home): -Patient on prednisone 30mg daily for past 4-5 weeks, started by PCP, is supposed to follow up with pulmonology -He is so disabled that he cannot ambulate and is pretty much bedbound from COPD. -Chest x-ray with some right midlung atelectasis but no clear infiltrate -We will continue with DuoNebs, budesonide -decreased prednisone to 20mg daily *bibasilar infiltrates on CXR: -on abx, pct unremarkable, has been on rocephin. ?fluid-was given lasix several days ago with bump in Cr -echo in december with normal EF and diastolic fxn *Hypertension: Will resume home dose diltiazem *?SHAHEEN on CKD stage III (baseline this year has been 1.5-1.8): Avoid nephrotoxic's -Cr at 2.0>1.7, monitor -FeUrea >35% *Dementia: Continue donepezil -zyprexa qhs started *BPH: Continue tamsulosin *Vitamin D deficiency: Continue vitamin D supplementation *Generalized weakness/deconditioning/poor functional status: Patient bedbound at home -He is so disabled that he cannot ambulate and is pretty much bedbound from COPD *Insomnia: melatonin/benadryl, will also be on qhs zyprexa -sleeping better *prophylaxis: lovenox CODE STATUS - DNR/DNI Plan of Treatment: 1. Check PVRV and increase flomax if indicated 2. Avoid loop diuretics 3. Avoid nephrotoxic Rx 4. Trend labs upon discharge. Time Spent With Patient Time: Total time spent is greater than 50% in coordination of care (as documented) at patient's floor/unit and/or counseling patient: Subsequent: Total time with patient: 35 - 49 minutes QUALITY VTE Deep Vein Thrombosis/Pulmonary Embolism Present on Admission: No
[2023-02-10] MEDS: IPRATROPIUM/ALBUTEROL 3 ML AMPUL.NEB NEB SCH (08:33)
[2023-02-10] MEDS: BUDESONIDE 0.5 MG/2 ML AMPUL.NEB NEB SCH (08:33)
[2023-02-10] MEDS: DONEPEZIL 10 MG TABLET PO SCH (08:56)
[2023-02-10] MEDS: DILTIAZEM 180 MG CAP.XL.24H PO SCH (08:56)
[2023-02-10] MEDS: TAMSULOSIN 0.4 MG CAPSULE PO SCH (08:56)
[2023-02-10] MEDS: guaiFENesin 600 MG TAB.SR.12H PO SCH (08:56)
[2023-02-10] MEDS: ENOXAPARIN 40 MG/0.4 ML SYRINGE SQ SCH (08:57)
[2023-02-10] MEDS: VITAMIN D3 125 MCG TABLET PO SCH (08:57)
[2023-02-10] MEDS: busPIRone 15 MG TABLET PO SCH (08:57)
[2023-02-10] MEDS: MULTIVIT,THER IRON,CA,FA & MIN 1 TABLET PO SCH (08:57)
[2023-02-10] MEDS: DOCUSATE SODIUM 100 MG CAPSULE PO SCH (08:57)
== END 2023-02-10 12:10 | DRG 71 ==
LOC: ED 13:48 → MEDSUR 17:35
PROVIDERS: ADMIT Internal Medicine; ATTEND Internal Medicine